=== PATIENT | male | born 1955 | race Caucasian/White ===

== ENCOUNTER 2016-06-01 12:29 | Emergency (ER) | payer OTHER ==
[~2016-06-01] VITALS: Ht 182.9 cm; Wt 113.4 kg
[~2016-06-01 12:29] MED LIST: IBUPROFEN600 MG PO; NORCO 5-325 TA1 EACH ORAL; TENORMIN25 MG ORAL
[2016-06-01] MEDS ORDERED: Ketorolac 60mg Inj IM ONE (13:00)
[2016-06-01] MEDS ORDERED: Norco 5mg/325mg tab ORAL ONE (13:00)
[2016-06-01] MEDS ORDERED: GENTAMICIN SUL3.5 GM OP (13:16)
[2016-06-01 13:40] VITALS: BP 138/80
--- NOTE | 2016-06-04 14:31 | Emergency Room Report ---
History of Present Illness General Chief Complaint: Alcohol Intoxication Source: Patient, Medical Record Present Illness HPI Patient presents with complaints of discharge from the left eye He also has pain to the nasal bridge And his recent surgical site Patient states that he has skin cancer Also tumor Patient reports that he had a recent procedure at [facility] He also reports drinking alcohol earlier today Patient has obvious surgical findings on the right side Which involves the right orbital wall Denies any fall or trauma Patient requested Dilaudid for his pain and states that this is what he usually gets Allergies: Coded Allergies: No Known Allergies (Unverified , 05/09/13) Patient History Past Medical History: see triage record Pertinent Family History: none Reviewed Nursing Documentation: PMH: Agreed, PSxH: Agreed Nursing Documentation-PMH Past Medical History: No History, Except For Hx Hypertension: Yes Hx Diabetes: Yes Hx Cancer: Yes - Brain CA Review of Systems All Other Systems: negative except mentioned in HPI Physical Exam Vital Signs Date Time Temp Pulse Resp B/P Pulse Ox O2 Delivery O2 Flow Rate FiO2 06/01/16 12:28 98.2 86 16 142/78 98 Room Air Sp02 EP Interpretation: reviewed, normal General Appearance: well appearing, no apparent distress Head: atraumatic, other - Evidence of surgery on the right side Eyes: right eye other - Patient has large debridement on the right side which involves the orbital region and into the nasal bridge, , left eye lid inflammation - Mild discharge in the left eye, pupil is reacting appropriately ENT: normal pharynx, no angioedema Respiratory: lungs clear, normal breath sounds Cardiovascular #1: regular rate, rhythm, no edema Gastrointestinal: soft, no mass Musculoskeletal: normal inspection, back normal Neurologic: alert, responsive Skin: other - As above Medical Decision Making Diagnostic Impression: Primary Impression: conjunctivitis ER Course Patient was provided ointment for the left eye Appears to have any significant recent surgery on the right side However the area appears appropriately healing Secondarily scabbing no fluctuance no other cellulitis is noted Patient requires close followup With primary site of the surgery And is otherwise stable for close followup Last Vital Signs Date Time Temp Pulse Resp B/P Pulse Ox O2 Delivery O2 Flow Rate FiO2 06/01/16 13:40 98.2 06/01/16 13:40 76 16 138/80 100 Room Air Status: improved Disposition: HOME, SELF-CARE Condition: Improved Scripts Gentamicin Sulfate* (GENTAMICIN SULFATE*) 3.5 Gm Oint...g. 3.5 GM OP TID for 7 Days, GM Prov: LAURA CRONIN D.O. 06/01/16 Referrals: NOT CHOSEN IPA/MD,REFERRING Patient Instructions: Bacterial Conjunctivitis, [id number] Additional Instructions: Patient is provided with the discharge instructions notified to follow up with primary doctor in the next 2-3 days otherwise return to the er with any worsening symptoms. LAURA CRONIN D.O. Jun 04, 2016 14:31
== END 2016-06-01 13:40 | disposition home or self-care (01) ==
LOC: EDBD 12:29 → EMR 12:40
DX: H10.9 Unspecified conjunctivitis (principal); I10 Essential (primary) hypertension; E11.9 Type 2 diabetes mellitus without complications; Z85.841 Personal history of malignant neoplasm of brain
CPT/HCPCS: 96372; 99283

== ENCOUNTER 2016-12-10 19:31 | Inpatient (IN) | payer OTHER ==
[~2016-12-10] VITALS: Ht 177.8 cm; Wt 105.2 kg
[~2016-12-10 19:31] MED LIST changes: +GENTAMICIN SUL3.5 GM OP
[2016-12-10 20:10] VITALS: BP 106/79
[2016-12-10 20:35] LABS: INR 1.3 (0.9-1.1); PROTHROMBIN TIME 14.1 SEC (9.30-11.50)
[2016-12-10 20:41] LABS: BASOPHILS % (AUTO) 1.2 % (0.0-2.0); EOSINOPHILS % (AUTO) 0.4 % (0.0-3.0); LYMPHOCYTES % (AUTO) 25.2 % (20.0-45.0); MEAN CORPUSCULAR HEMOGLOBIN 27.6 PG (27.0-31.0); MEAN CORPUSCULAR HGB CONC 32.6 G/DL (32.0-36.0); MEAN CORPUSCULAR VOLUME 85 FL (80-99); MEAN PLATELET VOLUME 6.8 FL (6.5-10.1); MONOCYTES % (AUTO) 10.8 % (1.0-10.0); NEUTROPHILS % (AUTO) 62.4 % (45.0-75.0); PLATELET COUNT 588 K/UL (150-450); RED BLOOD COUNT 3.19 M/UL (4.70-6.10); RED CELL DISTRIBUTION WIDTH 18.6 % (11.6-14.8); WHITE BLOOD COUNT 10.1 K/UL (4.8-10.8)
[2016-12-10 20:42] LABS: TROPONIN I < 0.30 ng/mL (<=0.30)
[2016-12-10 20:48] LABS: ALBUMIN/GLOBULIN RATIO 0.8 (1.0-2.7); CALCIUM 9.7 mg/dL (8.6-10.2); CREATININE 1.8 mg/dL (0.7-1.2); GLOMERULAR FILTRATION RATE 38.8 mL/min (>60); POTASSIUM 4.4 mEQ/L (3.4-4.9); TOTAL PROTEIN 7.9 g/dL (6.6-8.7)
[2016-12-10 20:58] LABS: CKMB 6.7 ng/mL (< 6.7)
[2016-12-10 21:00] VITALS: BP 110/85
[2016-12-10 21:09] LABS: BILIRUBIN,DIRECT 0.5 mg/dL (0.1-0.3)
[2016-12-10 21:14] LABS: APPEARANCE,URINE CLEAR; KETONES,URINE NEGATIVE (NEGATIVE); LEUKOCYTE ESTERASE ,URINE 2+ (NEGATIVE); NITRITE,URINE NEGATIVE (NEGATIVE); PH,URINE 5 (4.5-8.0); PROTEIN,URINE 2+ (NEGATIVE); UROBILINOGEN,URINE 4 MG/DL (0.0-1.0)
[2016-12-10 21:44] LABS: BACTERIA,URINE FEW /HPF; SQUAMOUS EPITHELIAL CELL,UR OCCASIONAL /LPF (NONE/OCC)
[2016-12-10 21:46] LABS: ICTOTEST NEGATIVE
--- NOTE | 2016-12-10 22:03 | Emergency Room Report ---
History of Present Illness General Chief Complaint: Chest Pain Source: Patient Present Illness HPI This patient lives in his van. Patient has a history of coronary artery disease and myocardial infarction. He also has a history of congestive heart failure. He states that he has brain cancer. He states he has been treated at [facility]. He has refused surgical resection of his brain tumor. He states that he was recently diagnosed with a DVT. He cannot be on any anticoagulation because when he went on Coumadin his eye started bleeding. He was recently placed on Lasix. He states he has been taking the Lasix as prescribed. He states he had a history of alcohol abuse but has not had a drink in 2 months. He complains of chest pain and shortness of breath. He states he can't even walk because he becomes very short of breath. He states he is also very weak. He has no other complaints. Allergies: Coded Allergies: No Known Allergies (Unverified , 05/09/13) Patient History Past Medical History: see triage record, DM, HTN, [place], CAD, CHF, other - Brain ca Social History: Denies: alcohol use, drug use, smoking Reviewed Nursing Documentation: PMH: Agreed, PSxH: Agreed Nursing Documentation-PMH Hx Hypertension: Yes Hx Diabetes: Yes Hx Cancer: Yes - Brain CA Review of Systems All Other Systems: negative except mentioned in HPI Physical Exam Vital Signs Date Time Temp Pulse Resp B/P Pulse Ox O2 Delivery O2 Flow Rate FiO2 12/10/16 19:31 98.4 99 16 106/79 100 Room Air Sp02 EP Interpretation: reviewed, normal General Appearance: no apparent distress, alert, GCS 15, non-toxic Head: normocephalic, atraumatic, other - R. orbit with dried blood. Eyeball removed. ENT: hearing grossly normal, normal pharynx, no angioedema, normal voice Neck: full range of motion, supple/symm/no masses Respiratory: chest non-tender, lungs clear, normal breath sounds, no respiratory distress, no retraction, no accessory muscle use, speaking full sentences Cardiovascular #1: regular rate, rhythm, no edema Gastrointestinal: normal bowel sounds, non tender, soft, non-distended, no guarding, no rebound Rectal: deferred Musculoskeletal: back normal, gait/station normal, normal range of motion, other - TTP L. calf Neurologic: alert, oriented x3, responsive, motor strength/tone normal, sensory intact, speech normal Psychiatric: judgement/insight normal, memory normal, mood/affect normal, no suicidal/homicidal ideation Skin: normal color, no rash, warm/dry, well hydrated Medical Decision Making Diagnostic Impression: Primary Impression: Chest pain Additional Impressions: Anemia Renal failure Transaminitis ER Course This patient presents with chest pain. The patient is a very complicated medical history. He is history of myocardial infarction and congestive heart failure. He is on Lasix. Chest x-ray shows a right lower lobe opacity but does not appear to be in acute heart failure. Troponin is negative. However, the patient has renal failure and transaminitis. Further concerning, is that this patient has a history of brain cancer. The patient reports a history of DVT but states that he cannot be on any blood thinners. Also concerning is that this patient is living in a van. This patient should be in a rehabilitation facility and not be in a van on the street. I did order bilateral lower extremity ultrasounds. However, these will be done as an inpatient in the hospital. This would not change treatment given this patient cannot be on any blood thinners and adamantly refuses to have any blood thinners. His visual be admitted for further monitoring and placement and social research assistant evaluation. Labs Test 12/10/16 20:00 12/10/16 20:35 White Blood Count 10.1 K/UL (4.8-10.8) Red Blood Count 3.19 M/UL (4.70-6.10) Hemoglobin 8.8 G/DL (14.2-18.0) Hematocrit 27.1 % (42.0-52.0) Mean Corpuscular Volume 85 FL (80-99) Mean Corpuscular Hemoglobin 27.6 PG (27.0-31.0) Mean Corpuscular Hemoglobin Concent 32.6 G/DL (32.0-36.0) Red Cell Distribution Width 18.6 % (11.6-14.8) Platelet Count 588 K/UL (150-450) Mean Platelet Volume 6.8 FL (6.5-10.1) Neutrophils (%) (Auto) 62.4 % (45.0-75.0) Lymphocytes (%) (Auto) 25.2 % (20.0-45.0) Monocytes (%) (Auto) 10.8 % (1.0-10.0) Eosinophils (%) (Auto) 0.4 % (0.0-3.0) Basophils (%) (Auto) 1.2 % (0.0-2.0) Prothrombin Time 14.1 SEC (9.30-11.50) Prothromb Time International Ratio 1.3 (0.9-1.1) Activated Partial Thromboplast Time 26 SEC (23-33) Sodium Level 131 mEQ/L (135-145) Potassium Level 4.4 mEQ/L (3.4-4.9) Chloride Level 90 mEQ/L (98-107) Carbon Dioxide Level 19 mEQ/L (20-30) Anion Gap 22 (5-15) Blood Urea Nitrogen 33 mg/dL (7-23) Creatinine 1.8 mg/dL (0.7-1.2) Estimat Glomerular Filtration Rate 38.8 mL/min (>60) Glucose Level 119 mg/dL (74-106) Calcium Level 9.7 mg/dL (8.6-10.2) Total Bilirubin 1.4 mg/dL (0.0-1.2) Direct Bilirubin 0.5 mg/dL (0.1-0.3) Aspartate Amino Transf (AST/SGOT) 90 U/L (5-40) Alanine Aminotransferase (ALT/SGPT) 79 U/L (3-41) Alkaline Phosphatase 218 U/L (40-129) Total Creatine Kinase 280 U/L (38-174) Creatine Kinase MB 6.7 ng/mL (< 6.7) Creatine Kinase MB Relative Index 2.3 Troponin I < 0.30 ng/mL (<=0.30) Total Protein 7.9 g/dL (6.6-8.7) Albumin 3.6 g/dL (3.5-5.2) Globulin 4.3 g/dL Albumin/Globulin Ratio 0.8 (1.0-2.7) Urine Color Yellow Urine Appearance Clear Urine pH 5 (4.5-8.0) Urine Specific [place] 1.025 (1.005-1.035) Urine Protein 2+ (NEGATIVE) Urine Glucose (UA) Negative (NEGATIVE) Urine Ketones Negative (NEGATIVE) Urine Occult Blood 1+ (NEGATIVE) Urine Nitrite Negative (NEGATIVE) Urine Bilirubin 1+ (NEGATIVE) Urine Ictotest Negative Urine Urobilinogen 4 MG/DL (0.0-1.0) Urine Leukocyte Esterase 2+ (NEGATIVE) Urine RBC 2-4 /HPF (0 - 0) Urine WBC 5-10 /HPF (0 - 0) Urine Squamous Epithelial Cells Occasional /LPF Urine Bacteria Few /HPF (NONE) Urine Opiates Screen Positive (NEGATIVE) Urine Barbiturates Screen Negative (NEGATIVE) Phencyclidine (PCP) Screen Negative (NEGATIVE) Urine Amphetamines Screen Negative (NEGATIVE) Urine Benzodiazepines Screen Negative (NEGATIVE) Urine Cocaine Screen Negative (NEGATIVE) Urine Marijuana (THC) Screen Positive (NEGATIVE) EKG Diagnostic Results Rate: tachycardiac Rhythm: other ST Segments: no acute changes Other Impression Q wave in V1, V2, V3. Rhythm Strip Diag. Results EP Interpretation: yes Rate: 100 Rhythm: NSR, no PVC's, no ectopy Chest X-Ray Diagnostic Results Chest X-Ray Diagnostic Results : Chest X-Ray Ordered: Yes # of Views/Limited/Complete: 1 View Indication: Chest Pain EP Interpretation: Yes Interpretation: no pneumothorax, other Impression: Other - Cardiomegaly, ? RLL opacity, pleural effusion Last Vital Signs Date Time Temp Pulse Resp B/P Pulse Ox O2 Delivery O2 Flow Rate FiO2 12/10/16 21:23 98.4 12/10/16 21:00 89 20 110/85 100 Room Air Disposition: ADMITTED INPATIENT Condition: Serious Referrals: [facility],REFERRING (PCP) MACHO FRENCH D.O. Dec 10, 2016 22:03
[2016-12-10] MEDS ORDERED: DuoNeb 0.5-3(2.5)mg/3ml neb HHN PRN (22:15)
[2016-12-10] MEDS ORDERED: Ketorolac 30mg Inj IV PRN (22:15)
[2016-12-10] MEDS ORDERED: Enalaprilat 2.5mg/2ml Inj IV PRN (22:15)
[2016-12-10] MEDS ORDERED: Diltiazem 25mg/5ml IV PRN (22:15)
[2016-12-10] MEDS ORDERED: Miralax 17gm pkt ORAL PRN (22:15)
[2016-12-10] MEDS ORDERED: Nitroglycerin Subl 0.4mg tab (Bottle Of 25) SL PRN (22:15)
[2016-12-10] MEDS ORDERED: Norco 5mg/325mg tab ORAL PRN (22:15)
[2016-12-11] VITALS (7 sets, daily range): BP systolic 98–126; BP diastolic 66–78
[2016-12-11] MEDS: Morphine Sulfate 2mg/ml Inj IVP PRN ×3 (03:06→21:54)
[2016-12-11] MEDS ORDERED: LIBRIUM25 MG ORAL (03:50)
[2016-12-11] MEDS ORDERED: FUROSEMIDE40 MG ORAL (03:50)
[2016-12-11 06:36] LABS: BASOPHILS % (AUTO) 0.6 % (0.0-2.0); EOSINOPHILS % (AUTO) 0.4 % (0.0-3.0); LYMPHOCYTES % (AUTO) 19.3 % (20.0-45.0); MEAN CORPUSCULAR HEMOGLOBIN 26.4 PG (27.0-31.0); MEAN CORPUSCULAR HGB CONC 31.4 G/DL (32.0-36.0); MEAN CORPUSCULAR VOLUME 84 FL (80-99); MONOCYTES % (AUTO) 8.2 % (1.0-10.0); NEUTROPHILS % (AUTO) 71.5 % (45.0-75.0); PLATELET COUNT 597 K/UL (150-450); RED BLOOD COUNT 3.19 M/UL (4.70-6.10); RED CELL DISTRIBUTION WIDTH 18.6 % (11.6-14.8)
[2016-12-11 06:42] LABS: INR 1.3 (0.9-1.1); PROTHROMBIN TIME 13.7 SEC (9.30-11.50)
[2016-12-11 07:56] LABS: CHOLESTEROL/HDL RATIO 5.6 (3.3-4.4); CRP QUANT 4.1 mg/dL (< 0.5)
[2016-12-11] MEDS: Heparin 5000 units/ml inj SUBQ SCH ×3 (08:20→22:05)
[2016-12-11 08:40] LABS: TROPONIN I < 0.30 ng/mL (<=0.30)
[2016-12-11 08:53] LABS: THYROID STIMULATING HORMONE 2.45 uIU/mL (0.300-4.500)
[2016-12-11] MEDS ORDERED: Atenolol 25mg tab ORAL SCH (09:00)
[2016-12-11] MEDS ORDERED: Aspirin Baby 81mg ORAL SCH (09:00)
--- NOTE | 2016-12-11 10:24 | Diagnostic Imaging Report ---
Indication: Chest pain Technique: One view of the chest Comparison: none Findings: There is pleural fluid and atelectasis of the right lung base. Heart is enlarged. The right upper lung, left lung and pleural space are clear. Impression: Right basilar pleural fluid and atelectasis
--- NOTE | 2016-12-11 11:32 | History and Physical ---
History of Present Illness General Date patient seen: Dec 11, 2016 Reason for Hospitalization: Chest Pain Present Illness HPI 61 year old male with hx of DM, HTN, OR, CAD, CHF,- Brain ca . on Lasix. history of alcohol abuse, homeless, presented to ER with CC of chest pain and shortness of breath. He states he can't even walk because he becomes very short of breath. He states he is also very weak. His CXR showed cardiomegaly and pleural effusion. Allergies: Coded Allergies: No Known Allergies (Unverified , 05/09/13) Medication History Scheduled Chlordiazepoxide (Chlordiazepoxide HCl), 25 MG ORAL BID, (Reported) Furosemide* (Lasix*), 40 MG ORAL DAILY, (Reported) Scheduled PRN Hydrocodone Bit/Acetaminophen 5-325* ([place] 5-325*), 1 TAB ORAL Q6H PRN for For Pain Discontinued Medications Atenolol (Tenormin), 25 MG ORAL DAILY, (Reported) Discontinued Reason: Pt stopped taking med Gentamicin Sulfate* (Gentamicin Sulfate*), 3.5 GM OP TID Discontinued Reason: Pt stopped taking med Ibuprofen* (Motrin*), 600 MG PO TID Discontinued Reason: Pt stopped taking med Patient History Healthcare decision maker Resuscitation status Full Code Advanced Directive on File Past Medical/Surgical History Past Medical/Surgical History: (1) Brain tumor (2) CAD (coronary artery disease) (3) Diabetes mellitus Review of Systems All Other Systems: negative except mentioned in HPI Physical Exam General Appearance: WD/WN Lines, tubes and drains: peripheral HEENT: normocephalic, atraumatic Neck: non-tender, normal alignment Respiratory/Chest: chest wall non-tender, rhonchi - bilaterally Cardiovascular/Chest: normal peripheral pulses, normal rate, no JVD Abdomen: normal bowel sounds, non tender Genitourinary/Rectal: normal genital exam Extremities: normal range of motion Skin Exam: normal pigmentation 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 Last 24 Hour Vital Signs Date Time Temp Pulse Resp B/P Pulse Ox O2 Delivery O2 Flow Rate FiO2 12/11/16 08:00 97.0 87 20 101/74 Nasal Cannula 2.0 12/11/16 04:00 97.0 78 24 100/68 92 Room Air 12/11/16 04:00 86 12/11/16 02:15 97.0 80 24 105/68 96 Nasal Cannula 2.0 12/11/16 02:10 93 16 99/66 100 Room Air 12/11/16 00:00 97.9 93 16 99/66 100 Room Air 12/10/16 21:23 98.4 12/10/16 21:00 89 20 110/85 100 Room Air 12/10/16 20:10 98.4 99 16 106/79 100 Room Air 12/10/16 20:10 99 16 Room Air 12/10/16 19:31 98.4 99 16 106/79 100 Room Air Intake and Output 12/10/16 12/11/16 19:00 07:00 Intake Total 535 ml Output Total 5 ml Balance 530 ml Intake Oral 240 ml IV Total 295 ml Output Urine Total 5 ml # Voids 4 # Bowel Movements 1 Laboratory Tests Test 12/10/16 20:00 12/10/16 20:35 12/10/16 22:00 12/11/16 03:20 White Blood Count 10.1 K/UL (4.8-10.8) Red Blood Count 3.19 M/UL (4.70-6.10) L Hemoglobin 8.8 G/DL (14.2-18.0) L Hematocrit 27.1 % (42.0-52.0) L Mean Corpuscular Volume 85 FL (80-99) Mean Corpuscular Hemoglobin 27.6 PG (27.0-31.0) Mean Corpuscular Hemoglobin Concent 32.6 G/DL (32.0-36.0) Red Cell Distribution Width 18.6 % (11.6-14.8) H Platelet Count 588 K/UL (150-450) H Mean Platelet Volume 6.8 FL (6.5-10.1) Neutrophils (%) (Auto) 62.4 % (45.0-75.0) Lymphocytes (%) (Auto) 25.2 % (20.0-45.0) Monocytes (%) (Auto) 10.8 % (1.0-10.0) H Eosinophils (%) (Auto) 0.4 % (0.0-3.0) Basophils (%) (Auto) 1.2 % (0.0-2.0) Prothrombin Time 14.1 SEC (9.30-11.50) H Prothromb Time International Ratio 1.3 (0.9-1.1) H Activated Partial Thromboplast Time 26 SEC (23-33) Sodium Level 131 mEQ/L (135-145) L Potassium Level 4.4 mEQ/L (3.4-4.9) Chloride Level 90 mEQ/L (98-107) L Carbon Dioxide Level 19 mEQ/L (20-30) L Anion Gap 22 (5-15) H Blood Urea Nitrogen 33 mg/dL (7-23) H Creatinine 1.8 mg/dL (0.7-1.2) H Estimat Glomerular Filtration Rate 38.8 mL/min (>60) Glucose Level 119 mg/dL (74-106) H Calcium Level 9.7 mg/dL (8.6-10.2) Total Bilirubin 1.4 mg/dL (0.0-1.2) H Direct Bilirubin 0.5 mg/dL (0.1-0.3) H Aspartate Amino Transf (AST/SGOT) 90 U/L (5-40) H Alanine Aminotransferase (ALT/SGPT) 79 U/L (3-41) H Alkaline Phosphatase 218 U/L (40-129) H Total Creatine Kinase 280 U/L (38-174) H Creatine Kinase MB 6.7 ng/mL (< 6.7) Creatine Kinase MB Relative Index 2.3 Troponin I < 0.30 ng/mL (<=0.30) Pro-B-Type Natriuretic Peptide 92995 pg/mL (0-125) H Total Protein 7.9 g/dL (6.6-8.7) Albumin 3.6 g/dL (3.5-5.2) Globulin 4.3 g/dL Albumin/Globulin Ratio 0.8 (1.0-2.7) L Urine Color Yellow Urine Appearance Clear Urine pH 5 (4.5-8.0) Urine Specific [place] 1.025 (1.005-1.035) Urine Protein 2+ (NEGATIVE) H Urine Glucose (UA) Negative (NEGATIVE) Urine Ketones Negative (NEGATIVE) Urine Occult Blood 1+ (NEGATIVE) H Urine Nitrite Negative (NEGATIVE) Urine Bilirubin 1+ (NEGATIVE) H Urine Ictotest Negative Urine Urobilinogen 4 MG/DL (0.0-1.0) H Urine Leukocyte Esterase 2+ (NEGATIVE) H Urine RBC 2-4 /HPF (0 - 0) H Urine WBC 5-10 /HPF (0 - 0) H Urine Squamous Epithelial Cells Occasional /LPF Urine Bacteria Few /HPF (NONE) Urine Opiates Screen Positive (NEGATIVE) H Urine Barbiturates Screen Negative (NEGATIVE) Phencyclidine (PCP) Screen Negative (NEGATIVE) Urine Amphetamines Screen Negative (NEGATIVE) Urine Benzodiazepines Screen Negative (NEGATIVE) Urine Cocaine Screen Negative (NEGATIVE) Urine Marijuana (THC) Screen Positive (NEGATIVE) H Uric Acid 11.4 mg/dL (3.0-7.5) H Urine Eosinophils None seen Urine Random Sodium < 10 mmol/L Urine Potassium Timed 89 mmol/L Stool Occult Blood Pending Test 12/11/16 04:30 White Blood Count 10.0 K/UL (4.8-10.8) Red Blood Count 3.19 M/UL (4.70-6.10) L Hemoglobin 8.4 G/DL (14.2-18.0) L Hematocrit 26.9 % (42.0-52.0) L Mean Corpuscular Volume 84 FL (80-99) Mean Corpuscular Hemoglobin 26.4 PG (27.0-31.0) L Mean Corpuscular Hemoglobin Concent 31.4 G/DL (32.0-36.0) L Red Cell Distribution Width 18.6 % (11.6-14.8) H Platelet Count 597 K/UL (150-450) H Mean Platelet Volume 7.0 FL (6.5-10.1) Neutrophils (%) (Auto) 71.5 % (45.0-75.0) Lymphocytes (%) (Auto) 19.3 % (20.0-45.0) L Monocytes (%) (Auto) 8.2 % (1.0-10.0) Eosinophils (%) (Auto) 0.4 % (0.0-3.0) Basophils (%) (Auto) 0.6 % (0.0-2.0) Erythrocyte Sedimentation Rate 87 MM/HR (0-20) H Reticulocyte Count Pending Prothrombin Time 13.7 SEC (9.30-11.50) H Prothromb Time International Ratio 1.3 (0.9-1.1) H Activated Partial Thromboplast Time 27 SEC (23-33) Iron Level 20 ug/dL (59-158) L Total Iron Binding Capacity 437 ug/dL (250-400) H Percent Iron Saturation 5 % (15-50) L Unsaturated Iron Binding 417 ug/dL (112-346) H Lactate Dehydrogenase 413 U/L (135-230) H Troponin I < 0.30 ng/mL (<=0.30) C-Reactive Protein, Quantitative 4.1 mg/dL (< 0.5) H Triglycerides Level 61 mg/dL (< 150) Cholesterol Level 79 mg/dL (< 200) LDL Cholesterol 53 mg/dL (60-99) L HDL Cholesterol 14 mg/dL (> 60) Cholesterol/HDL Ratio 5.6 (3.3-4.4) H Carcinoembryonic Antigen 3.4 ng/mL H Vitamin B12 Level 849 pg/mL (211-946) Folate Pending Thyroid Stimulating Hormone (TSH) 2.450 uIU/mL (0.300-4.500) Height (Feet): 5 Height (Inches): 10.00 Weight (Pounds): 232 Medications Current Medications Medications (Trade) Dose Ordered Sig/[place] Route PRN Reason Start Time Stop Time Status Last Admin Dose Admin Acetaminophen (Tylenol) 650 mg Q4H PRN ORAL FEVER 12/10/16 22:15 01/09/17 22:14 Acetaminophen/ Hydrocodone Bitart ([place] 5/325) 1 tab Q6H PRN ORAL For Pain 12/10/16 22:15 12/17/16 22:14 Albuterol/ Ipratropium (DuoNeb 0.5-3(2.5)mg/3ml) 3 ml EVERY 4 HOURS PRN HHN Shortness of Breath 12/10/16 22:15 12/15/16 22:14 Aspirin (ASA) 162 mg DAILY ORAL 12/11/16 09:00 01/10/17 08:59 12/11/16 08:20 Diltiazem HCl (Cardizem) 10 mg EVERY HOUR PRN IV heart rate more than 120, 12/10/16 22:15 01/09/17 22:14 Enalaprilat (Vasotec) 2.5 mg EVERY 6 HOURS PRN IV sbp more than 160 12/10/16 22:15 01/09/17 22:14 Heparin Sodium (Porcine) 5000 units 5,000 units EVERY 12 HOURS SUBQ 12/11/16 09:00 01/10/17 08:59 Ketorolac Tromethamine (Toradol 30mg) 30 mg Q6HR PRN IV moderate pain ( 4-6) 12/10/16 22:15 12/15/16 22:14 UNV Morphine Sulfate (Morphine Sulfate) 2 mg EVERY 4 HOURS PRN IVP severe Pain (Pain Scale 7-10) 12/10/16 22:15 12/17/16 22:14 12/11/16 08:25 Nitroglycerin (Ntg) 0.4 mg Every 5 Minutes PRN SL Prn Chest Pain 12/10/16 22:15 01/09/17 22:14 Ondansetron HCl (Zofran) 4 mg Q6H PRN IVP Nausea & Vomiting 12/10/16 22:15 01/09/17 22:14 Pantoprazole (Protonix) 40 mg DAILY ORAL 12/11/16 09:00 01/10/17 08:59 12/11/16 08:20 Polyethylene Glycol (Miralax) 17 gm DAILYPRN PRN ORAL Constipation 12/10/16 22:15 01/09/17 22:14 Sodium Chloride (Sodium Chloride 1000ml bag) 1,000 ml @ 75 mls/hr [id number] IV 12/11/16 03:00 01/10/17 02:59 12/11/16 03:07 Temazepam (Restoril) 15 mg HSPRN PRN ORAL Insomnia 12/10/16 22:15 12/17/16 22:14 Assessment/Plan Problem List: (1) Pulmonary edema ICD Codes: J81.1 - Chronic pulmonary edema SNOMED: 82971890 (2) Cardiomyopathy ICD Codes: I42.9 - Cardiomyopathy, unspecified SNOMED: 42766870 (3) Anemia ICD Codes: D64.9 - Anemia, unspecified SNOMED: 159633871 (4) Renal failure ICD Codes: N19 - Unspecified kidney failure SNOMED: 73421304 (5) Diabetes mellitus ICD Codes: E11.9 - Type 2 diabetes mellitus without complications SNOMED: 30667211 (6) CAD (coronary artery disease) ICD Codes: I25.10 - Atherosclerotic heart disease of [place] coronary artery without angina pectoris SNOMED: 80666878 (7) Brain tumor ICD Codes: D49.6 - Neoplasm of unspecified behavior of brain SNOMED: 18358637, 766217376 Assessment/Plan cardiac work up diuretics obtain records from [facility] social service consult RICARDO SHIPLEY Dec 11, 2016 11:32
--- NOTE | 2016-12-11 12:18 | Diagnostic Imaging Report ---
APPROVED REPORT CPT Code: 28664 Present Symptoms Shortness of breath RIGHT LEG: Venous imaging reveals a patent deep venous system. There is no evidence of thrombus within the femoral, popliteal or tibial segments. The greater saphenous vein is also within normal limits. Doppler indicates normal spontaneous flow within these segments. LEFT LEG: Venous imaging reveals acute thrombus in the calf vein (peroneal tibial). Imaging also reveals patency of the common femoral, popliteal and calf veins (posterior tibial and anterior tibial ). The greater saphenous vein is within normal limits. DAMASO Vaughan was notified of abnormal results at 1120 hours.
[2016-12-11 12:22] LABS: RETICULOCYTE COUNT 2.3 % (0.0-2.0)
[2016-12-11 12:37] LABS: ANISOCYTOSIS 2+; BAND NEUTROPHILS % (MANUAL) 0 % (0-8); BASOPHILS % (MANUAL) 0 % (0-2); EOSINOPHILS % (MANUAL) 0 % (0-3); LYMPHOCYTES % (MANUAL) 16 % (20-45); NEUTROPHILS % (MANUAL) 71 % (45-75); NUCLEATED RED BLOOD CELLS 4 /100 WBC; PLATELET ESTIMATE INCREASED; PLATELET MORPHOLOGY NORMAL; TOTAL CELLS COUNTED 100
[2016-12-11 12:38] LABS: HYPOCHROMASIA 2+
--- NOTE | 2016-12-11 13:24 | Neurology Progress Note ---
Objective Physical Exam Last Vital Signs Date Time Temp Pulse Resp B/P Pulse Ox O2 Delivery O2 Flow Rate FiO2 12/11/16 12:00 97.6 70 18 109/78 Nasal Cannula 2.0 12/11/16 04:00 92 Laboratory Tests Test 12/10/16 20:00 12/10/16 20:35 12/10/16 22:00 12/11/16 03:20 White Blood Count 10.1 K/UL (4.8-10.8) Red Blood Count 3.19 M/UL (4.70-6.10) L Hemoglobin 8.8 G/DL (14.2-18.0) L Hematocrit 27.1 % (42.0-52.0) L Mean Corpuscular Volume 85 FL (80-99) Mean Corpuscular Hemoglobin 27.6 PG (27.0-31.0) Mean Corpuscular Hemoglobin Concent 32.6 G/DL (32.0-36.0) Red Cell Distribution Width 18.6 % (11.6-14.8) H Platelet Count 588 K/UL (150-450) H Mean Platelet Volume 6.8 FL (6.5-10.1) Neutrophils (%) (Auto) 62.4 % (45.0-75.0) Lymphocytes (%) (Auto) 25.2 % (20.0-45.0) Monocytes (%) (Auto) 10.8 % (1.0-10.0) H Eosinophils (%) (Auto) 0.4 % (0.0-3.0) Basophils (%) (Auto) 1.2 % (0.0-2.0) Prothrombin Time 14.1 SEC (9.30-11.50) H Prothromb Time International Ratio 1.3 (0.9-1.1) H Activated Partial Thromboplast Time 26 SEC (23-33) Sodium Level 131 mEQ/L (135-145) L Potassium Level 4.4 mEQ/L (3.4-4.9) Chloride Level 90 mEQ/L (98-107) L Carbon Dioxide Level 19 mEQ/L (20-30) L Anion Gap 22 (5-15) H Blood Urea Nitrogen 33 mg/dL (7-23) H Creatinine 1.8 mg/dL (0.7-1.2) H Estimat Glomerular Filtration Rate 38.8 mL/min (>60) Glucose Level 119 mg/dL (74-106) H Calcium Level 9.7 mg/dL (8.6-10.2) Total Bilirubin 1.4 mg/dL (0.0-1.2) H Direct Bilirubin 0.5 mg/dL (0.1-0.3) H Aspartate Amino Transf (AST/SGOT) 90 U/L (5-40) H Alanine Aminotransferase (ALT/SGPT) 79 U/L (3-41) H Alkaline Phosphatase 218 U/L (40-129) H Total Creatine Kinase 280 U/L (38-174) H Creatine Kinase MB 6.7 ng/mL (< 6.7) Creatine Kinase MB Relative Index 2.3 Troponin I < 0.30 ng/mL (<=0.30) Pro-B-Type Natriuretic Peptide 89938 pg/mL (0-125) H Total Protein 7.9 g/dL (6.6-8.7) Albumin 3.6 g/dL (3.5-5.2) Globulin 4.3 g/dL Albumin/Globulin Ratio 0.8 (1.0-2.7) L Urine Color Yellow Urine Appearance Clear Urine pH 5 (4.5-8.0) Urine Specific [place] 1.025 (1.005-1.035) Urine Protein 2+ (NEGATIVE) H Urine Glucose (UA) Negative (NEGATIVE) Urine Ketones Negative (NEGATIVE) Urine Occult Blood 1+ (NEGATIVE) H Urine Nitrite Negative (NEGATIVE) Urine Bilirubin 1+ (NEGATIVE) H Urine Ictotest Negative Urine Urobilinogen 4 MG/DL (0.0-1.0) H Urine Leukocyte Esterase 2+ (NEGATIVE) H Urine RBC 2-4 /HPF (0 - 0) H Urine WBC 5-10 /HPF (0 - 0) H Urine Squamous Epithelial Cells Occasional /LPF Urine Bacteria Few /HPF (NONE) Urine Opiates Screen Positive (NEGATIVE) H Urine Barbiturates Screen Negative (NEGATIVE) Phencyclidine (PCP) Screen Negative (NEGATIVE) Urine Amphetamines Screen Negative (NEGATIVE) Urine Benzodiazepines Screen Negative (NEGATIVE) Urine Cocaine Screen Negative (NEGATIVE) Urine Marijuana (THC) Screen Positive (NEGATIVE) H Uric Acid 11.4 mg/dL (3.0-7.5) H Urine Eosinophils None seen Urine Random Sodium < 10 mmol/L Urine Potassium Timed 89 mmol/L Stool Occult Blood Positive (NEGATIVE) Test 12/11/16 04:30 White Blood Count 10.0 K/UL (4.8-10.8) Red Blood Count 3.19 M/UL (4.70-6.10) L Hemoglobin 8.4 G/DL (14.2-18.0) L Hematocrit 26.9 % (42.0-52.0) L Mean Corpuscular Volume 84 FL (80-99) Mean Corpuscular Hemoglobin 26.4 PG (27.0-31.0) L Mean Corpuscular Hemoglobin Concent 31.4 G/DL (32.0-36.0) L Red Cell Distribution Width 18.6 % (11.6-14.8) H Platelet Count 597 K/UL (150-450) H Mean Platelet Volume 7.0 FL (6.5-10.1) Neutrophils (%) (Auto) 71.5 % (45.0-75.0) Lymphocytes (%) (Auto) 19.3 % (20.0-45.0) L Monocytes (%) (Auto) 8.2 % (1.0-10.0) Eosinophils (%) (Auto) 0.4 % (0.0-3.0) Basophils (%) (Auto) 0.6 % (0.0-2.0) Differential Total Cells Counted 100 Neutrophils % (Manual) 71 % (45-75) Lymphocytes % (Manual) 16 % (20-45) L Monocytes % (Manual) 13 % (1-10) H Eosinophils % (Manual) 0 % (0-3) Basophils % (Manual) 0 % (0-2) Band Neutrophils 0 % (0-8) Nucleated Red Blood Cells 4 /100 WBC Platelet Estimate Increased H Platelet Morphology Normal Hypochromasia 2+ Anisocytosis 2+ Erythrocyte Sedimentation Rate 87 MM/HR (0-20) H Reticulocyte Count 2.3 % (0.0-2.0) H Prothrombin Time 13.7 SEC (9.30-11.50) H Prothromb Time International Ratio 1.3 (0.9-1.1) H Activated Partial Thromboplast Time 27 SEC (23-33) Iron Level 20 ug/dL (59-158) L Total Iron Binding Capacity 437 ug/dL (250-400) H Percent Iron Saturation 5 % (15-50) L Unsaturated Iron Binding 417 ug/dL (112-346) H Lactate Dehydrogenase 413 U/L (135-230) H Troponin I < 0.30 ng/mL (<=0.30) C-Reactive Protein, Quantitative 4.1 mg/dL (< 0.5) H Triglycerides Level 61 mg/dL (< 150) Cholesterol Level 79 mg/dL (< 200) LDL Cholesterol 53 mg/dL (60-99) L HDL Cholesterol 14 mg/dL (> 60) Cholesterol/HDL Ratio 5.6 (3.3-4.4) H Carcinoembryonic Antigen 3.4 ng/mL H Vitamin B12 Level 849 pg/mL (211-946) Folate Pending Thyroid Stimulating Hormone (TSH) 2.450 uIU/mL (0.300-4.500) Impression/Recommendations Problems: (1) basal cell carcinoma, right orbit, invasive (2) CAD (coronary artery disease) (3) Diabetes mellitus (4) Transaminitis (5) Renal failure (6) Cardiomyopathy Status: unchanged Recommendations #[id number] INGRID SMITH Dec 11, 2016 13:24
--- NOTE | 2016-12-11 14:45 | Diagnostic Imaging Report ---
Indication: Abnormal renal function tests Technique: Grayscale and duplex images of the kidneys, retroperitoneum, and bladder were obtained. Comparison:None Findings: Right kidney measures 10.8 cm in length. Left kidney measures 10.7 cm in length. Both kidneys demonstrate normal echogenicity. No hydronephrosis. No focal abnormality. Normal inferior vena cava. Bladder is equivocally somewhat thickwalled. Incidentally noted is trace ascites and a right-sided pleural effusion Impression: Negative for hydronephrosis or other renal abnormality Equivocally thickened bladder wall, cystitis a possibility. Correlate with clinical and laboratory findings Trace ascites Right pleural effusion.
--- NOTE | 2016-12-11 17:16 | Consultation ---
DATE OF CONSULTATION: 12/11/2016 NEUROLOGICAL CONSULTATION HISTORY OF PRESENT ILLNESS: This is a 61-year-old man seen in neurological consultation to evaluate the progressive difficulty ambulation in the setting of a brain tumor. The patient informed that he has cardiac abnormalities, shortness of breath on minor exertion, chest pain, and recently diagnosed left lower extremity DVT. He suffered previously from CHF. The patient also informs that last 10 years, he is suffering from basal cell carcinoma affected his left orbit and left-sided skull with gradual progression of tumor, which was not treated. 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 The patient was brought to this hospital with vital signs stable, blood pressure 106/79, heart rate of 99, and temperature 98.4 degrees. He was complaining of chest pain. Initial workup included a chest x-ray, which revealed a pleural fluid and atelectasis of right lung base, enlarged cardiomegaly. Duplex study of lower extremities with acute thrombus in the left leg. Laboratory work included CBC study was unremarkable, but sedimentation rate of 87 and reticulocyte count of 2.3. Stool occult blood was positive. Toxicology panel positive for opiates and marijuana. Coagulation panel with INR 1.3 and PT 13.1. Chemistry panel with anion gap of 22, BUN of 33, and creatinine 1.8. Elevated bilirubin 1.4. AST 90 and ALT 79. Elevated CPK is 280. Greatly elevated natriuretic peptide of 10,983. Normal TSH and vitamin B12 as well as troponin. Uric acid elevated at 11.4. PAST MEDICAL HISTORY: The patient has a history of congestive heart failure, chronic alcohol abuse, history of coronary artery disease, previous OH, chronic pain, diabetes type 2, transaminitis, and pulmonary edema. MEDICATIONS: Treatment prior to admission included aspirin, diltiazem, , Zofran, Protonix, MiraLax, and Restoril. SOCIAL HISTORY: Lives in a van. No close family. He states that his last drink was two months ago. He is smoking marijuana. REVIEW OF SYSTEMS: Severe shortness of breath on exertion, chest pain, generalized weakness, inability to walk more than a few steps causing shortness of breath. Using walker due to problem with walking. PHYSICAL EXAMINATION: GENERAL: A well-developed, well-nourished man, not in acute distress, sitting at the bedside, having his lunch. VITAL SIGNS: Blood pressure 133/80, respirations 14, and temperature 98.1 degrees. HEENT: Head, normocephalic. There is a very large gaping tissue deficit in the right orbital area with enucleated right eye. There is a slight bloody discharge, sterile gauze placed on the right orbit. NECK: Supple. No meningeal signs. MUSCULOSKELETAL: 1+ pitting edema in both ankles. Peripheral pulses 1+ symmetric. MENTAL STATUS: He is alert and oriented x3 with no evidence of aphasia or apraxia. Cognitive function normal. CRANIAL NERVE II: Left pupil is 2 mm, responding to light and accommodation. Extraocular movement full range CRANIAL NERVE V: Normal corneal responses. CRANIAL NERVE VII: Slight droop right nasolabial fold. CRANIAL NERVE VIII: Normal hearing. CRANIAL NERVE IX THROUGH XII: Within normal limits. MOTOR EXAMINATION: Normal muscle tone. Strength is 5/5 in all extremities. No involuntary movement. Deep tendon reflexes 1+ symmetric with downgoing toes on both sides. Sensory exam normal to pin stimulation. Gait is slow, limited by shortness of breath. IMPRESSION: 1. Basal cell carcinoma with invasive, now stable. 2. Abnormal gait, multifactorial predominantly due to congestive heart failure. 3. Hypertension. 4. Diabetes, type 2. 5. Coronary artery disease, status post myocardial infarction. 6. Substance abuse. RECOMMENDATION: Basal cell carcinoma very slowly progressing for over 10 years with most recent assessment at [facility] where an MRI of the brain was obtained revealing no interval changes according to the patient. He denies headache or dizziness. The patient main concern at this time is shortness of breath affecting his ambulation. He has no focal or lateralizing neurological deficit. Issue of DVT left lower extremity will being addressed. Anticoagulation is not indicated due to open bleeding ulceration in the tumor area. The patient to continue with the current treatment, maintain thiamine 100 mg daily supplements. Thank you for allowing me to see this interesting patient in neurological consultation. Wilfredo Sweeney M.D. DR: BOBBI JOB#: [id number] CC:
--- NOTE | 2016-12-11 18:05 | Cardiology Report ---
APPROVED REPORT EXAM: Two-dimensional and M-mode echocardiogram with Doppler and color Doppler. INDICATION LV function M-Mode DIMENSIONS IVSd0.8 (0.7-1.1cm)Left Atrium (MM)5.2 (1.6-4.0cm) LVDd5.1 (3.5-5.6cm)Aortic Root2.9 (2.0-3.7cm) PWd2.2 (0.7-1.1cm)Aortic Cusp Exc.1.9 (1.5-2.0cm) LVDs3.9 (2.5-4.0cm) PWs3.0 cm Other Information Technically limited study due to poor acoustical windows and pt's position. Normal left ventricular chamber size. Septum apex distal lateral wall , distal inferior and anterior [place] appear akinetic RV appears enlarged adn porbably hypokintic Left ventricular ejection fraction estimated to be 30 %. Increased E point-interventricular septal separation c/w left ventricular dysfunction. Study quality precludes accurate assessment of regional wall motion. No evidence of left ventricular hypertrophy. Anterior Echo-free space, may be due to pericardial fat or effusion. Moderate bi-atrial enlargement. Right ventricular chamber size is within normal limits. Focal aortic valve sclerosis with adequate cusp excursion. Thickened mitral valve leaflets with normal excursion. Mitral annulus and aortic root calcification. Pulmonic valve not well visualized. Normal tricuspid valve structure. IVC dilated at 2.8 cm without physiologic collapse suggestive of RA pressure 20 mmHg. A color flow and spectral Doppler study was performed and revealed: Trace to mild aortic regurgitation. Moderate mitral regurgitation. Mitral inflow indicates restrictive pattern, implying severely elevated left atrial pressure (Grade III). Mild to moderate tricuspid regurgitation. Tricuspid systolic velocities suggests peak right ventricular systolic pressure of 50 mmHg, consistent with moderate pulmonary hypertension.
--- NOTE | 2016-12-11 18:14 | Cardiology Report ---
APPROVED REPORT EKG Measurement Heart [id number] Sinus tachycardia Left axis deviation Right bundle branch block Anteroseptal infarct, age undetermined Abnormal ECG
--- NOTE | 2016-12-11 19:27 | Cardiology Progress Note ---
Assessment/Plan Assessment/Plan acute on chronic chf icm cad with stemi 11/2016 refused pci dvt bellow knee not acute obeisty cri righ eye bleedign on dapt [facility] righ eye s/p enuclaeation dc ivf diuretics watch bp adn cr nto a cnadidate co chronic anticoagualtion due to bleedign form right eye [id number] Objective Last 24 Hour Vital Signs Date Time Temp Pulse Resp B/P Pulse Ox O2 Delivery O2 Flow Rate FiO2 12/11/16 16:00 97.0 97 18 126/73 Room Air 12/11/16 16:00 89 12/11/16 14:28 92 20 Nasal Cannula 2.0 29 12/11/16 12:00 92 12/11/16 12:00 97.6 70 18 109/78 Nasal Cannula 2.0 12/11/16 08:00 90 12/11/16 08:00 97.0 87 20 101/74 Nasal Cannula 2.0 12/11/16 04:00 97.0 78 24 100/68 92 Room Air 12/11/16 04:00 86 12/11/16 02:15 97.0 80 24 105/68 96 Nasal Cannula 2.0 12/11/16 02:10 93 16 99/66 100 Room Air 12/11/16 00:00 97.9 93 16 99/66 100 Room Air 12/10/16 21:23 98.4 12/10/16 21:00 89 20 110/85 100 Room Air 12/10/16 20:10 98.4 99 16 106/79 100 Room Air 12/10/16 20:10 99 16 Room Air 12/10/16 19:31 98.4 99 16 106/79 100 Room Air Intake and Output 12/10/16 12/11/16 19:00 07:00 Intake Total 535 ml Output Total 5 ml Balance 530 ml Intake Oral 240 ml IV Total 295 ml Output Urine Total 5 ml # Voids 4 # Bowel Movements 1 Laboratory Tests Test 12/10/16 20:00 12/10/16 20:35 12/10/16 22:00 12/11/16 03:20 White Blood Count 10.1 K/UL (4.8-10.8) Red Blood Count 3.19 M/UL (4.70-6.10) L Hemoglobin 8.8 G/DL (14.2-18.0) L Hematocrit 27.1 % (42.0-52.0) L Mean Corpuscular Volume 85 FL (80-99) Mean Corpuscular Hemoglobin 27.6 PG (27.0-31.0) Mean Corpuscular Hemoglobin Concent 32.6 G/DL (32.0-36.0) Red Cell Distribution Width 18.6 % (11.6-14.8) H Platelet Count 588 K/UL (150-450) H Mean Platelet Volume 6.8 FL (6.5-10.1) Neutrophils (%) (Auto) 62.4 % (45.0-75.0) Lymphocytes (%) (Auto) 25.2 % (20.0-45.0) Monocytes (%) (Auto) 10.8 % (1.0-10.0) H Eosinophils (%) (Auto) 0.4 % (0.0-3.0) Basophils (%) (Auto) 1.2 % (0.0-2.0) Prothrombin Time 14.1 SEC (9.30-11.50) H Prothromb Time International Ratio 1.3 (0.9-1.1) H Activated Partial Thromboplast Time 26 SEC (23-33) Sodium Level 131 mEQ/L (135-145) L Potassium Level 4.4 mEQ/L (3.4-4.9) Chloride Level 90 mEQ/L (98-107) L Carbon Dioxide Level 19 mEQ/L (20-30) L Anion Gap 22 (5-15) H Blood Urea Nitrogen 33 mg/dL (7-23) H Creatinine 1.8 mg/dL (0.7-1.2) H Estimat Glomerular Filtration Rate 38.8 mL/min (>60) Glucose Level 119 mg/dL (74-106) H Calcium Level 9.7 mg/dL (8.6-10.2) Total Bilirubin 1.4 mg/dL (0.0-1.2) H Direct Bilirubin 0.5 mg/dL (0.1-0.3) H Aspartate Amino Transf (AST/SGOT) 90 U/L (5-40) H Alanine Aminotransferase (ALT/SGPT) 79 U/L (3-41) H Alkaline Phosphatase 218 U/L (40-129) H Total Creatine Kinase 280 U/L (38-174) H Creatine Kinase MB 6.7 ng/mL (< 6.7) Creatine Kinase MB Relative Index 2.3 Troponin I < 0.30 ng/mL (<=0.30) Pro-B-Type Natriuretic Peptide 71761 pg/mL (0-125) H Total Protein 7.9 g/dL (6.6-8.7) Albumin 3.6 g/dL (3.5-5.2) Globulin 4.3 g/dL Albumin/Globulin Ratio 0.8 (1.0-2.7) L Urine Color Yellow Urine Appearance Clear Urine pH 5 (4.5-8.0) Urine Specific [place] 1.025 (1.005-1.035) Urine Protein 2+ (NEGATIVE) H Urine Glucose (UA) Negative (NEGATIVE) Urine Ketones Negative (NEGATIVE) Urine Occult Blood 1+ (NEGATIVE) H Urine Nitrite Negative (NEGATIVE) Urine Bilirubin 1+ (NEGATIVE) H Urine Ictotest Negative Urine Urobilinogen 4 MG/DL (0.0-1.0) H Urine Leukocyte Esterase 2+ (NEGATIVE) H Urine RBC 2-4 /HPF (0 - 0) H Urine WBC 5-10 /HPF (0 - 0) H Urine Squamous Epithelial Cells Occasional /LPF Urine Bacteria Few /HPF (NONE) Urine Opiates Screen Positive (NEGATIVE) H Urine Barbiturates Screen Negative (NEGATIVE) Phencyclidine (PCP) Screen Negative (NEGATIVE) Urine Amphetamines Screen Negative (NEGATIVE) Urine Benzodiazepines Screen Negative (NEGATIVE) Urine Cocaine Screen Negative (NEGATIVE) Urine Marijuana (THC) Screen Positive (NEGATIVE) H Uric Acid 11.4 mg/dL (3.0-7.5) H Urine Eosinophils None seen Urine Random Sodium < 10 mmol/L Urine Potassium Timed 89 mmol/L Stool Occult Blood Positive (NEGATIVE) Test 12/11/16 04:30 White Blood Count 10.0 K/UL (4.8-10.8) Red Blood Count 3.19 M/UL (4.70-6.10) L Hemoglobin 8.4 G/DL (14.2-18.0) L Hematocrit 26.9 % (42.0-52.0) L Mean Corpuscular Volume 84 FL (80-99) Mean Corpuscular Hemoglobin 26.4 PG (27.0-31.0) L Mean Corpuscular Hemoglobin Concent 31.4 G/DL (32.0-36.0) L Red Cell Distribution Width 18.6 % (11.6-14.8) H Platelet Count 597 K/UL (150-450) H Mean Platelet Volume 7.0 FL (6.5-10.1) Neutrophils (%) (Auto) 71.5 % (45.0-75.0) Lymphocytes (%) (Auto) 19.3 % (20.0-45.0) L Monocytes (%) (Auto) 8.2 % (1.0-10.0) Eosinophils (%) (Auto) 0.4 % (0.0-3.0) Basophils (%) (Auto) 0.6 % (0.0-2.0) Differential Total Cells Counted 100 Neutrophils % (Manual) 71 % (45-75) Lymphocytes % (Manual) 16 % (20-45) L Monocytes % (Manual) 13 % (1-10) H Eosinophils % (Manual) 0 % (0-3) Basophils % (Manual) 0 % (0-2) Band Neutrophils 0 % (0-8) Nucleated Red Blood Cells 4 /100 WBC Platelet Estimate Increased H Platelet Morphology Normal Hypochromasia 2+ Anisocytosis 2+ Erythrocyte Sedimentation Rate 87 MM/HR (0-20) H Reticulocyte Count 2.3 % (0.0-2.0) H Prothrombin Time 13.7 SEC (9.30-11.50) H Prothromb Time International Ratio 1.3 (0.9-1.1) H Activated Partial Thromboplast Time 27 SEC (23-33) Iron Level 20 ug/dL (59-158) L Total Iron Binding Capacity 437 ug/dL (250-400) H Percent Iron Saturation 5 % (15-50) L Unsaturated Iron Binding 417 ug/dL (112-346) H Lactate Dehydrogenase 413 U/L (135-230) H Troponin I < 0.30 ng/mL (<=0.30) C-Reactive Protein, Quantitative 4.1 mg/dL (< 0.5) H Triglycerides Level 61 mg/dL (< 150) Cholesterol Level 79 mg/dL (< 200) LDL Cholesterol 53 mg/dL (60-99) L HDL Cholesterol 14 mg/dL (> 60) Cholesterol/HDL Ratio 5.6 (3.3-4.4) H Carcinoembryonic Antigen 3.4 ng/mL H Vitamin B12 Level 849 pg/mL (211-946) Folate Pending Thyroid Stimulating Hormone (TSH) 2.450 uIU/mL (0.300-4.500) NIURKA WASHBURN Dec 11, 2016 19:27
[2016-12-12] VITALS: BP 95/72
--- NOTE | 2016-12-12 01:46 | Consultation ---
DATE OF CONSULTATION: 12/11/2016 CARDIOLOGY CONSULTATION CONSULTING PHYSICIAN: Ronni Swift M.D. REFERRING PHYSICIAN: Gabriel Pickens M.D. REASON FOR REFERRAL: Shortness of breath. HISTORY OF PRESENT ILLNESS: This is a middle-aged gentleman apparently who had an ST-segment elevation myocardial infarction, he had cardiac catheterization and intervention and subsequently had adequate muscle damage to cause him to have an ejection fraction of 22% with significant ischemic cardiomyopathy and heart failure subsequent to that. He has a history of basal cell carcinoma of the orbit, he had enucleation of the eye. When he had myocardial infarction apparently 11/27/2016 through 12/04/2016, he was discharged on dual antiplatelet therapy. He did have a venous duplex study of the lower extremity which apparently showed deep venous thrombosis although below the knee, but potential for increased risk of bleeding resulted and I am not sure to anticoagulate rightfully, so the patient was subsequently admitted because of bleeding from his eye and was taken off antiplatelet agents and was placed only on aspirin and was discharged subsequently home a few days ago. He was transfused for hemoglobin of 7.1 with of blood. He had venous duplex apparently showed no change in the venous thrombosis size. He now presents to the hospital because of shortness of breath with minimal activity. He says when he had hospitalization at [facility] he was the same and he really is not feeling better. He indicates he has been compliant with his medications. He indicates that when he has symptoms of shortness of breath, he drinks something and symptoms improve. He lives in his van at the present time. He sleeps flat position on the side in the hospital. He indicates he uses two pillows. He does have episodes of shortness breath waking him up at night. the patient is dizzy and lightheaded. The patient has palpitations. PAST MEDICAL HISTORY: Positive for history of acute ST elevation myocardial infarction again and the patient refused therapy. He has a history of bleeding from his eye. 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 FAMILY HISTORY: Positive for some kind of heart problems in mother, father, and siblings, but the patient is unaware of. SOCIAL HISTORY: He is homeless. He used to drink six beers a day. He denies any alcohol intake. He does occasionally take oxycodone for back pains and no drug use. He lives in his car. REVIEW OF SYSTEMS: Gastrointestinal: Negative. Genitourinary: Negative. Pulmonary: Negative. Constitutional: Negative. Neurologic: Negative. PHYSICAL EXAMINATION: GENERAL: Shows to be obese middle-aged gentleman, in no respiratory distress, eye patch on the right side. VITAL SIGNS: His blood pressure at the time of admission was between 99/66 to 126/73, his heart rates in the 70s to 90s, his temperature is 97 degrees, and saturation of 92% to 96% on room air. NECK: Supple. RESPIRATORY: There are basal crackles on the lung examination. CARDIAC: Regular rate and rhythm. No heaves or thrills noted. ABDOMEN: Abdomen is obese. Positive bowel sounds. Nontender. EXTREMITIES: There is edema of 1+ to 2+ of the lower extremities that is pitting. NEUROLOGICAL: He is awake, alert, responsive, and in no respiratory distress. LABORATORY AND DIAGNOSTIC DATA: White count of 10, hemoglobin 8.4, and platelet count of 497,000 with 16 lymphocytes and 13 monocytes. Sedimentation rate of 87, reticulocyte count of 2.3. His sodium 131, potassium 4.4, chloride 90, bicarbonate of 19, BUN 33, creatinine 1.8, and glucose of 116. Bilirubin of 1.4, alkaline phosphatase 218, AST and ALT 90 and 79 respectively. Troponin less than 0.03. His proBNP is 10,983. His coags, INR 1.3 and PTT of 27. His urinalysis shows 5 to 10 WBCs, 2+ leukocyte esterase, and 2+ protein, and his toxicology screen positive for opiates as well as marijuana, and stool occult blood is positive. His electrocardiogram shows right bundle-branch conduction defect, delay in R-wave progression suggestive of anterior myocardial infarction, low voltage QRS complexes in the mid leads, no real significant ST-T wave abnormalities being noted. In direct comparison to EKG performed at [facility] on 12/05/2016, his present EKG appears to be unchanged. ASSESSMENT: 1. Acute on chronic systolic heart failure. 2. Ischemic cardiomyopathy. 3. Coronary disease history, for which the patient refused PCI. 4. Basal cell carcinoma of the right eye, status post enucleation. 5. Renal insufficiency. 6. History of recent bleed from his eye post dual antiplatelet therapy. 7. Deep venous thrombosis of the left lower extremity, chronic, previously stable. 8. Ischemic cardiomyopathy with ejection fraction of 22% previously. Dr. Pickens, this patient was seen in cardiac consultation. The patient has had an echocardiogram here that has shown ejection fraction of approximately 30% with significant amount of left ventricle being akinetic, which I personally reviewed. He does have some mild aortic regurgitation, moderate mitral regurgitation, and mitral inflow suggestive of increased left atrial pressure and diastolic dysfunction. His venous duplex study shows an acute thrombus of the left calf with calf pain and he was not felt to be a candidate for anticoagulation at [facility]. He is on intravenous fluids, which I will discontinue at the present time and place him on some low-dose diuretics in light of fact that he has symptoms of congestive heart failure. He recently was at [facility], he received blood transfusion and his medications including aspirin, Lipitor 80 mg daily, Lasix 40 mg as needed if short of breath or leg swelling lisinopril 2.5 mg daily, those will be restarted and the patient's blood pressure will be monitored, and further recommendations as necessary. Ronni Swift M.D. DR: APURVA JOB#: [id number] CC:
[2016-12-12 04:00] VITALS: BP 135/77
[2016-12-12 07:37] LABS: TROPONIN I < 0.30 ng/mL (<=0.30)
[2016-12-12 08:00] VITALS: BP 132/77
[2016-12-12 08:12] LABS: CALCIUM 9.3 mg/dL (8.6-10.2); CREATININE 1.3 mg/dL (0.7-1.2); GLOMERULAR FILTRATION RATE 56.5 mL/min (>60); POTASSIUM 4.1 mEQ/L (3.4-4.9)
[2016-12-12] MEDS: Aspirin Baby 81mg ORAL SCH (08:12)
--- NOTE | 2016-12-12 08:16 | Consultation ---
DATE OF CONSULTATION: 12/11/2016 HEMATOLOGY/ONCOLOGY CONSULTATION CONSULTING PHYSICIAN: Shane Metz M.D. REQUESTING PHYSICIAN: Gabriel Pickens M.D. REASON FOR CONSULTATION: Evaluation of anemia, thrombocytosis, and coagulopathy. IDENTIFICATION: Dear Dr. Pickens, The patient is a pleasant 61-year-old male. He has a past medical history significant for CHF, history of brain cancer, CAD, mild hypertension, diabetes mellitus, homeless, and history of alcohol abuse, at this time presents to [facility] with shortness of breath as well as chest pain, difficulty walking, very short of breath. Chest x-ray showed cardiomegaly, pleural effusion. Cardiology service as well as Neurology consulted for further evaluation and treatment. Status post enucleation, DVT, below the knee, however, is not acute as was noted. Hematology consulted for further evaluation. PAST MEDICAL HISTORY: Basal cell carcinoma affecting his left orbit, left eye, gradual progression, not treated, enucleation apparently, resection of the tumor, has an open wound on the left orbit, CHF, chronic alcohol abuse, CAD, previous GA, type 2 diabetes mellitus, transaminitis, and pulmonary edema. MEDICATIONS: Aspirin, diltiazem, , and Restoril. SOCIAL HISTORY: Lives in a van. No close family. He states his last drink was two months ago. Smokes marijuana. REVIEW OF SYSTEMS: Constitutional: No fever, chills, or night sweats. Skin: No rashes, lumps, or itching. HEENT: No headache or vision changes. Breasts: No lumps, pain, or discharge. Pulmonary: He does have some shortness of breath on exertion and chest pain. Cardiovascular: No chest pain, costochondritis. Gastrointestinal: No nausea, vomiting, or diarrhea. Genitourinary: No dysuria, frequency, or urgency. Musculoskeletal: No joint swelling, muscle pain, or trauma. PHYSICAL EXAMINATION: GENERAL: This gentleman is in distress. VITAL SIGNS: Blood pressure 138/80, respiratory rate 12, and temperature 98 degrees Fahrenheit. HEENT: Large gaping tissue deficit in the right orbital area, enucleated right eye. SKIN: Otherwise no rashes noted. PULMONARY: Clear to auscultation bilaterally. No crackles noted. CARDIOVASCULAR: Regular rate. No S3 or S4. ABDOMEN: Soft, nontender, and nondistended. EXTREMITIES: A 1+ edema. LABORATORY AND DIAGNOSTIC DATA: . Hemoglobin and hematocrit is pending. Alkaline phosphatase reviewed. INR is 1.3. BUN of 33, creatinine of 1.8. BNP of 11,000. ASSESSMENT: 1. Basal cell carcinoma, status post enucleation right eye, stable, unchanged, invasive. We would not recommend at the moment treatment especially given lack of social support and lack of followup . 2. Anemia, secondary to chronic disease. 3. Deep vein thrombosis noted. We would not recommend anticoagulation ____ the patient's carcinoma eye. 4. Anemia. 5. Coagulopathy potential involvement. 6. Anemia of kidney disease. 7. Hypertension. 8. Type 2 diabetes mellitus. 9. Substance abuse. 10. Homelessness. Social work consult. 11. Discussed with staff. Shane Metz M.D. DR: BENITA JOB#: [id number] CC:
[2016-12-12] MEDS: Morphine Sulfate 2mg/ml Inj IVP PRN ×2 (08:22→16:24)
[2016-12-12 12:00] VITALS: BP 105/79
--- NOTE | 2016-12-12 13:09 | Pulmonology Progress Note ---
Assessment/Plan Problems: (1) Pulmonary edema (2) Cardiomyopathy (3) EF 30% (4) CAD (coronary artery disease) (5) Lower GI bleed (6) Anemia (7) Renal failure (8) Diabetes mellitus Assessment/Plan continue diuretics pt/ot evalutatin pt is homeless, snif placement check cxr, BNP in am Subjective ROS Limited/Unobtainable: No Interval Events: improving Allergies: Coded Allergies: No Known Allergies (Unverified , 05/09/13) Objective Last 24 Hour Vital Signs Date Time Temp Pulse Resp B/P Pulse Ox O2 Delivery O2 Flow Rate FiO2 12/12/16 12:00 97.8 94 20 105/79 94 Nasal Cannula 12/12/16 08:52 97.0 12/12/16 08:00 93 12/12/16 08:00 93 12/12/16 08:00 95.9 98 20 132/77 Nasal Cannula 12/12/16 06:38 71 16 Room Air 12/12/16 04:00 97.0 91 20 135/77 100 Nasal Cannula 2.0 29 12/12/16 04:00 93 12/12/16 00:00 92 12/12/16 00:00 97.0 87 20 95/72 100 Nasal Cannula 2.0 29 12/11/16 20:00 96 12/11/16 20:00 97.0 94 20 98/66 97 Nasal Cannula 2.0 29 12/11/16 19:48 90 20 Nasal Cannula 2.0 12/11/16 16:00 97.0 97 18 126/73 Room Air 12/11/16 16:00 89 12/11/16 14:28 92 20 Nasal Cannula 2.0 29 Intake and Output 12/11/16 12/12/16 19:00 07:00 Intake Total 1100 ml Output Total 600 ml Balance 1100 ml -600 ml Intake Oral 1100 ml Output Urine Total 600 ml # Voids 8 # Bowel Movements 1 General Appearance: WD/WN HEENT: normocephalic, atraumatic Respiratory/Chest: chest wall non-tender, lungs clear Cardiovascular: normal peripheral pulses, normal rate Abdomen: normal bowel sounds, soft, non tender Genitourinary: normal external genitalia Extremities: no cyanosis Skin: no rash 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 Lymphatic: no neck adenopathy Laboratory Tests 12/12/16 07:00: Sodium Level 133L, Potassium Level 4.1, Chloride Level 94L, Carbon Dioxide Level 21, Anion Gap 18H, Blood Urea Nitrogen 31H, Creatinine 1.3H, Estimat Glomerular Filtration Rate 56.5, Glucose Level 111H, Calcium Level 9.3, Troponin I < 0.30 Current Medications Medications (Trade) Dose Ordered Sig/Clayton Route PRN Reason Start Time Stop Time Status Last Admin Dose Admin Acetaminophen (Tylenol) 650 mg Q4H PRN ORAL FEVER 12/10/16 22:15 01/09/17 22:14 Acetaminophen/ Hydrocodone Bitart ([place] 5/325) 1 tab Q6H PRN ORAL For Pain 12/10/16 22:15 12/17/16 22:14 12/12/16 12:46 Albuterol/ Ipratropium (DuoNeb 0.5-3(2.5)mg/3ml) 3 ml EVERY 4 HOURS PRN HHN Shortness of Breath 12/10/16 22:15 12/15/16 22:14 Aspirin (ASA) 81 mg DAILY ORAL 12/12/16 09:00 01/11/17 08:59 12/12/16 08:12 Diltiazem HCl (Cardizem) 10 mg EVERY HOUR PRN IV heart rate more than 120, 12/10/16 22:15 01/09/17 22:14 Enalaprilat (Vasotec) 2.5 mg EVERY 6 HOURS PRN IV sbp more than 160 12/10/16 22:15 01/09/17 22:14 Furosemide (Lasix) 40 mg DAILY IV 12/11/16 20:00 01/10/17 19:59 12/12/16 08:12 Heparin Sodium (Porcine) (Heparin 5000 units/ml) 5,000 units EVERY 12 HOURS SUBQ 12/11/16 09:00 01/10/17 08:59 Morphine Sulfate (Morphine Sulfate) 2 mg EVERY 4 HOURS PRN IVP severe Pain (Pain Scale 7-10) 12/10/16 22:15 12/17/16 22:14 12/12/16 08:22 Nitroglycerin (Ntg) 0.4 mg Every 5 Minutes PRN SL Prn Chest Pain 12/10/16 22:15 01/09/17 22:14 Ondansetron HCl (Zofran) 4 mg Q6H PRN IVP Nausea & Vomiting 12/10/16 22:15 01/09/17 22:14 Pantoprazole (Protonix) 40 mg DAILY ORAL 12/11/16 09:00 01/10/17 08:59 12/12/16 08:12 Polyethylene Glycol (Miralax) 17 gm DAILYPRN PRN ORAL Constipation 12/10/16 22:15 01/09/17 22:14 Temazepam (Restoril) 15 mg HSPRN PRN ORAL Insomnia 12/10/16 22:15 12/17/16 22:14 12/11/16 21:59 RICARDO SHIPLEY Dec 12, 2016 13:09
--- NOTE | 2016-12-12 13:40 | General Progress Note ---
Assessment/Plan Assessment/Plan 1. Basal cell carcinoma, status post enucleation right eye, stable, unchanged, invasive. We would not recommend treatment at the moment especially given lack of social support and lack of followup. 2. Anemia, secondary to chronic disease. --> monitor counts --> hgb goal is above 7 3. Deep vein thrombosis noted in the L calf vein. We would not recommend anticoagulation at the moment due to the patient's carcinoma of the eye. 4. Anemia. 5. Coagulopathy. 6. Anemia of kidney disease. 7. Hypertension. 8. Type 2 diabetes mellitus. 9. Substance abuse. 10. Homelessness. Social work consult. 11. Discussed with staff. Subjective Constitutional: Reports: no symptoms HEENT: Reports: no symptoms Cardiovascular: Reports: no symptoms Respiratory: Reports: no symptoms Gastrointestinal/Abdominal: Reports: no symptoms Genitourinary: Reports: no symptoms Neurologic/Psychiatric: Reports: no symptoms Endocrine: Reports: no symptoms Hematologic/Lymphatic: Reports: anemia Allergies: Coded Allergies: No Known Allergies (Unverified , 05/09/13) Subjective nad , no events overnight, appears comfortable Objective Last 24 Hour Vital Signs Date Time Temp Pulse Resp B/P Pulse Ox O2 Delivery O2 Flow Rate FiO2 12/12/16 12:00 97.8 94 20 105/79 94 Nasal Cannula 12/12/16 08:52 97.0 12/12/16 08:00 93 12/12/16 08:00 93 12/12/16 08:00 95.9 98 20 132/77 Nasal Cannula 12/12/16 06:38 71 16 Room Air 12/12/16 04:00 97.0 91 20 135/77 100 Nasal Cannula 2.0 29 12/12/16 04:00 93 12/12/16 00:00 92 12/12/16 00:00 97.0 87 20 95/72 100 Nasal Cannula 2.0 29 12/11/16 20:00 96 12/11/16 20:00 97.0 94 20 98/66 97 Nasal Cannula 2.0 29 12/11/16 19:48 90 20 Nasal Cannula 2.0 12/11/16 16:00 97.0 97 18 126/73 Room Air 12/11/16 16:00 89 12/11/16 14:28 92 20 Nasal Cannula 2.0 29 Intake and Output 12/11/16 12/12/16 19:00 07:00 Intake Total 1100 ml Output Total 600 ml Balance 1100 ml -600 ml Intake Oral 1100 ml Output Urine Total 600 ml # Voids 8 # Bowel Movements 1 Laboratory Tests 12/12/16 07:00: Sodium Level 133L, Potassium Level 4.1, Chloride Level 94L, Carbon Dioxide Level 21, Anion Gap 18H, Blood Urea Nitrogen 31H, Creatinine 1.3H, Estimat Glomerular Filtration Rate 56.5, Glucose Level 111H, Calcium Level 9.3, Troponin I < 0.30 Height (Feet): 5 Height (Inches): 10.00 Weight (Pounds): 232 General Appearance: no apparent distress EENT: PERRL/EOMI Neck: non-tender Cardiovascular: normal peripheral pulses Respiratory/Chest: chest wall non-tender Edema: no edema noted Pedal (L), no edema noted Pedal (R) Edema: trace edema 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
--- NOTE | 2016-12-12 15:57 | GI Initial Consult Note ---
History of Present Illness General Date patient seen: Dec 12, 2016 Time patient seen: 15:48 Reason for Hospitalization: Chest Pain Referring physician: RICADRO GONZALEZ Reason for Consultation: OB STOOL POSITIVE Present Illness HPI This patient lives in his van. Patient has a history of coronary artery disease and myocardial infarction. He also has a history of congestive heart failure. He states that he has brain cancer. He states he has been treated at [facility]. He has refused surgical resection of his brain tumor. He states that he was recently diagnosed with a DVT. He cannot be on any anticoagulation because when he went on Coumadin his eye started bleeding. He was recently placed on Lasix. He states he has been taking the Lasix as prescribed. He states he had a history of alcohol abuse but has not had a drink in 2 months. He complains of chest pain and shortness of breath. He states he can't even walk because he becomes very short of breath. He states he is also very weak. He has no other complaints. GI Consult. HPI as noted above. GI consulted for positive occult blood stool. Pt seen on floor, awake A&OxNAD with no active s/sx of N/V/D. C/o of constipation. Presents today with positive occult blood stool, anemi and iron deficiency. The past has no history of any endoscopic procedures performed. Home Meds Active Scripts Hydrocodone Bit/Acetaminophen 5-325* (NORCO 5-325*) 1 Each Tablet, 1 TAB ORAL Q6H Y for For Pain, #10 TAB 0 Refills Prov:BRINA VELAZQUEZ.AJennifer 05/09/13 Reported Medications Chlordiazepoxide (Chlordiazepoxide HCl) 25 Mg Capsule, 25 MG ORAL BID, #15 CAP 0 Refills 12/11/16 Furosemide* (LASIX*) 40 Mg Tablet, 40 MG ORAL DAILY, TAB 12/11/16 Discontinued Reported Medications Atenolol (Tenormin) 25 Mg Tab, 25 MG ORAL DAILY, TAB 05/09/13 Discontinued Scripts Gentamicin Sulfate* (GENTAMICIN SULFATE*) 3.5 Gm Oint...g., 3.5 GM OP TID for 7 Days, GM Prov:LAURA CRONIN D.O. 06/01/16 Ibuprofen* (MOTRIN*) 600 Mg Tablet, 600 MG PO TID, #30 TAB 0 Refills Take 1 tablet by mouth three times a day as needed for pain. Prov:BRINA VELAZQUEZ 05/09/13 Med list reviewed/reconciled: Yes Allergies: Coded Allergies: No Known Allergies (Unverified , 05/09/13) Patient History History Provided By: Patient, Medical Record PMH Narrative Past Medical History: see triage record, DM, HTN, VA, CAD, CHF, other - Brain ca Social History: Denies: alcohol use, drug use, smoking Reviewed Nursing Documentation: PMH: Agreed, PSxH: Agreed Nursing Documentation-PMH Hx Hypertension: Yes Hx Diabetes: Yes Hx Cancer: Yes - Brain CA Review of Systems All Other Systems: limited Physical Exam Vital Signs Date Time Temp Pulse Resp B/P Pulse Ox O2 Delivery O2 Flow Rate FiO2 12/10/16 19:31 98.4 99 16 106/79 100 Room Air 12/11/16 02:15 2.0 12/11/16 14:28 29 Sp02 EP Interpretation: reviewed Labs Laboratory Tests Test 12/12/16 07:00 Sodium Level 133 mEQ/L (135-145) L Potassium Level 4.1 mEQ/L (3.4-4.9) Chloride Level 94 mEQ/L (98-107) L Carbon Dioxide Level 21 mEQ/L (20-30) Anion Gap 18 (5-15) H Blood Urea Nitrogen 31 mg/dL (7-23) H Creatinine 1.3 mg/dL (0.7-1.2) H Estimat Glomerular Filtration Rate 56.5 mL/min (>60) Glucose Level 111 mg/dL (74-106) H Calcium Level 9.3 mg/dL (8.6-10.2) Troponin I < 0.30 ng/mL (<=0.30) General Appearance: well appearing, no apparent distress, alert Head: normocephalic EENT: normal ENT inspection Neck: supple Respiratory: no respiratory distress Cardiovascular: normal rate Gastrointestinal: soft Rectal: deferred Neurologic: normal inspection, alert, oriented x3, responsive Psychiatric: normal inspection, judgement/insight normal, memory normal Skin: normal inspection, normal color, no rash, warm/dry, palpation normal Lymphatic: normal inspection, no adenopathy Current Medications Current Medications Medications (Trade) Dose Ordered Sig/Clayton Route PRN Reason Start Time Stop Time Status Last Admin Dose Admin Acetaminophen (Tylenol) 650 mg Q4H PRN ORAL FEVER 12/10/16 22:15 01/09/17 22:14 Acetaminophen/ Hydrocodone Bitart ([place] 5/325) 1 tab Q6H PRN ORAL For Pain 12/10/16 22:15 12/17/16 22:14 12/12/16 12:46 Albuterol/ Ipratropium (DuoNeb 0.5-3(2.5)mg/3ml) 3 ml EVERY 4 HOURS PRN HHN Shortness of Breath 12/10/16 22:15 12/15/16 22:14 Aspirin (ASA) 81 mg DAILY ORAL 12/12/16 09:00 01/11/17 08:59 12/12/16 08:12 Diltiazem HCl (Cardizem) 10 mg EVERY HOUR PRN IV heart rate more than 120, 12/10/16 22:15 01/09/17 22:14 Enalaprilat (Vasotec) 2.5 mg EVERY 6 HOURS PRN IV sbp more than 160 12/10/16 22:15 01/09/17 22:14 Furosemide (Lasix) 40 mg DAILY IV 12/11/16 20:00 01/10/17 19:59 12/12/16 08:12 Heparin Sodium (Porcine) (Heparin 5000 units/ml) 5,000 units EVERY 12 HOURS SUBQ 12/11/16 09:00 01/10/17 08:59 Morphine Sulfate (Morphine Sulfate) 2 mg EVERY 4 HOURS PRN IVP severe Pain (Pain Scale 7-10) 12/10/16 22:15 12/17/16 22:14 12/12/16 08:22 Nitroglycerin (Ntg) 0.4 mg Every 5 Minutes PRN SL Prn Chest Pain 12/10/16 22:15 01/09/17 22:14 Ondansetron HCl (Zofran) 4 mg Q6H PRN IVP Nausea & Vomiting 12/10/16 22:15 01/09/17 22:14 Pantoprazole (Protonix) 40 mg DAILY ORAL 12/11/16 09:00 01/10/17 08:59 12/12/16 08:12 Polyethylene Glycol (Miralax) 17 gm DAILYPRN PRN ORAL Constipation 12/10/16 22:15 01/09/17 22:14 Temazepam (Restoril) 15 mg HSPRN PRN ORAL Insomnia 12/10/16 22:15 12/17/16 22:14 12/11/16 21:59 GI: Plan Problems: (1) Occult blood in stools (2) Iron deficiency (3) Anemia (4) EF 30% Plan patient will require cardiac clearance for EGD/colonoscopy given EF of 30% monitor H&H, transfuse prn ppi iron deficiency >> venofer x 3 cardiac diet fu labs Discussed with Dr. Rehman. Thank you for referring this patient, we will follow. Zainab Curry N.P. Dec 12, 2016 15:57
[2016-12-12 16:00] VITALS: BP 100/68
--- NOTE | 2016-12-12 17:32 | Cardiology Progress Note ---
Assessment/Plan Assessment/Plan 1. Acute on chronic systolic heart failure. 2. Ischemic cardiomyopathy. 3. Coronary disease history, for which the patient refused PCI. 4. Basal cell carcinoma of the right eye, status post enucleation. 5. Renal insufficiency. 6. History of recent bleed from his eye post dual antiplatelet therapy. 7. Deep venous thrombosis of the left lower extremity, chronic,previously stable. 8. Ischemic cardiomyopathy with ejection fraction of 22% previously. 9. NSVT diuretics to be continued watch bp adn cr nto a candidate co chronic anticoagualtion due to bleeding form right eye cr is better bp seem ok for his degree of cm low dose acei if bp allow orthostatic vital tele reviewed no myonecrosis Subjective Cardiovascular: Reports: lightheadedness, Denies: chest pain, palpitations Respiratory: Reports: orthopnea, shortness of breath Gastrointestinal/Abdominal: Denies: abdomen distended Genitourinary: Denies: burning Objective Last 24 Hour Vital Signs Date Time Temp Pulse Resp B/P Pulse Ox O2 Delivery O2 Flow Rate FiO2 12/12/16 16:54 95.7 12/12/16 16:00 95.7 93 20 100/68 97 Nasal Cannula 12/12/16 13:45 97.8 12/12/16 12:00 97.8 94 20 105/79 94 Nasal Cannula 12/12/16 12:00 97 12/12/16 08:00 93 12/12/16 08:00 93 12/12/16 08:00 95.9 98 20 132/77 Nasal Cannula 12/12/16 06:38 71 16 Room Air 12/12/16 04:00 97.0 91 20 135/77 100 Nasal Cannula 2.0 29 12/12/16 04:00 93 12/12/16 00:00 92 12/12/16 00:00 97.0 87 20 95/72 100 Nasal Cannula 2.0 29 12/11/16 20:00 96 12/11/16 20:00 97.0 94 20 98/66 97 Nasal Cannula 2.0 29 12/11/16 19:48 90 20 Nasal Cannula 2.0 General Appearance: alert Neck: supple Cardiovascular: normal rate, regular rhythm Respiratory/Chest: lungs clear Abdomen: normal bowel sounds, non tender, soft Extremities: moderate edema Intake and Output 12/11/16 12/12/16 19:00 07:00 Intake Total 1100 ml Output Total 600 ml Balance 1100 ml -600 ml Intake Oral 1100 ml Output Urine Total 600 ml # Voids 8 # Bowel Movements 1 Laboratory Tests Test 12/12/16 07:00 Sodium Level 133 mEQ/L (135-145) L Potassium Level 4.1 mEQ/L (3.4-4.9) Chloride Level 94 mEQ/L (98-107) L Carbon Dioxide Level 21 mEQ/L (20-30) Anion Gap 18 (5-15) H Blood Urea Nitrogen 31 mg/dL (7-23) H Creatinine 1.3 mg/dL (0.7-1.2) H Estimat Glomerular Filtration Rate 56.5 mL/min (>60) Glucose Level 111 mg/dL (74-106) H Calcium Level 9.3 mg/dL (8.6-10.2) Troponin I < 0.30 ng/mL (<=0.30) NIURKA WASHBURN Dec 12, 2016 17:32
[2016-12-12 20:12] VITALS: BP 106/50
[2016-12-12] MEDS: Heparin 5000 units/ml inj SUBQ SCH (21:00)
[2016-12-13 00:02] VITALS: BP 100/64
[2016-12-13 04:00] VITALS: BP 102/62
[2016-12-13 07:45] VITALS: BP 117/72
[2016-12-13 08:15] LABS: BASOPHILS % (AUTO) 1.4 % (0.0-2.0); EOSINOPHILS % (AUTO) 1.5 % (0.0-3.0); LYMPHOCYTES % (AUTO) 23.4 % (20.0-45.0); MEAN CORPUSCULAR HEMOGLOBIN 25.5 PG (27.0-31.0); MEAN CORPUSCULAR VOLUME 85 FL (80-99); MONOCYTES % (AUTO) 7.6 % (1.0-10.0); NEUTROPHILS % (AUTO) 66.1 % (45.0-75.0); PLATELET COUNT 594 K/UL (150-450); RED BLOOD COUNT 3.74 M/UL (4.70-6.10); RED CELL DISTRIBUTION WIDTH 18.8 % (11.6-14.8); WHITE BLOOD COUNT 8.8 K/UL (4.8-10.8)
[2016-12-13] MEDS: Aspirin Baby 81mg ORAL SCH (08:32)
[2016-12-13] MEDS: Morphine Sulfate 2mg/ml Inj IVP PRN (08:40)
[2016-12-13] MEDS: Heparin 5000 units/ml inj SUBQ SCH (09:00)
[2016-12-13 09:13] LABS: ALBUMIN/GLOBULIN RATIO 0.7 (1.0-2.7); CALCIUM 9.3 mg/dL (8.6-10.2); CREATININE 1.5 mg/dL (0.7-1.2); GLOMERULAR FILTRATION RATE 47.9 mL/min (>60); POTASSIUM 4.4 mEQ/L (3.4-4.9); TOTAL PROTEIN 8.1 g/dL (6.6-8.7)
--- NOTE | 2016-12-13 09:17 | Diagnostic Imaging Report ---
Indications: DYSPNEA Technique: Portable AP chest Findings: Comparison: 12/10/16 Inspiratory effort has decreased. Image substantially degraded by motion. These factors limit evaluation. Linear density persists in right lung base. Underlying consolidative opacity not excludable. Right costophrenic angle remains indistinct. Visualized portions of left lung and pleura remain clear. Cardiac silhouette remains enlarged. Bony vasculature remains within normal limits. IMPRESSION: Limited exam due to technical factors described Persistent subsegmental atelectasis right lung base. Underlying pneumonia not excludable. Right pleural effusion again suggested Upright PA and lateral chest radiographs with better inspiratory effort and optimal technique recommended for more complete evaluation.
--- NOTE | 2016-12-13 11:00 | GI Progress Note ---
Assessment/Plan Problems: (1) Iron deficiency ICD Codes: E61.1 - Iron deficiency SNOMED: 34839030 (2) Occult blood in stools ICD Codes: R19.5 - Other fecal abnormalities SNOMED: 24952134, 012192158 (3) EF 30% (4) Diabetes mellitus ICD Codes: E11.9 - Type 2 diabetes mellitus without complications SNOMED: 95394605 (5) Transaminitis ICD Codes: R74.0 - Nonspecific elevation of levels of transaminase and lactic acid dehydrogenase [LDH] SNOMED: 601242995 (6) Anemia ICD Codes: D64.9 - Anemia, unspecified SNOMED: 049035874 Status: unchanged Status Narrative Discussed with Dr. Rehman. Assessment/Plan patient will require cardiac clearance for EGD/colonoscopy given EF of 30% monitor H&H, transfuse prn ppi iron deficiency >> venofer x 3 cardiac diet fu abdominal U/S fu hep panel fu labs Subjective Subjective general weakness Objective Last 24 Hour Vital Signs Date Time Temp Pulse Resp B/P Pulse Ox O2 Delivery O2 Flow Rate FiO2 12/13/16 08:00 98 12/13/16 07:45 97.2 97 18 117/72 95 Room Air 12/13/16 04:00 93 12/13/16 04:00 98.0 94 20 102/62 98 Room Air 12/13/16 00:02 97.6 88 19 100/64 95 Room Air 12/13/16 00:00 96 12/12/16 20:12 97.7 96 20 106/50 100 Room Air 12/12/16 20:00 98 12/12/16 19:25 95 18 Room Air 12/12/16 16:54 95.7 12/12/16 16:00 95.7 93 20 100/68 97 Nasal Cannula 12/12/16 16:00 93 12/12/16 13:45 97.8 12/12/16 12:00 97.8 94 20 105/79 94 Nasal Cannula 12/12/16 12:00 97 Intake and Output 12/12/16 12/13/16 19:00 07:00 Output Total 250 ml Balance -250 ml Output Urine Total 250 ml # Voids 3 1 Laboratory Tests Test 12/13/16 07:35 White Blood Count 8.8 K/UL (4.8-10.8) Red Blood Count 3.74 M/UL (4.70-6.10) L Hemoglobin 9.5 G/DL (14.2-18.0) L Hematocrit 31.9 % (42.0-52.0) L Mean Corpuscular Volume 85 FL (80-99) Mean Corpuscular Hemoglobin 25.5 PG (27.0-31.0) L Mean Corpuscular Hemoglobin Concent 30.0 G/DL (32.0-36.0) L Red Cell Distribution Width 18.8 % (11.6-14.8) H Platelet Count 594 K/UL (150-450) H Mean Platelet Volume 7.0 FL (6.5-10.1) Neutrophils (%) (Auto) 66.1 % (45.0-75.0) Lymphocytes (%) (Auto) 23.4 % (20.0-45.0) Monocytes (%) (Auto) 7.6 % (1.0-10.0) Eosinophils (%) (Auto) 1.5 % (0.0-3.0) Basophils (%) (Auto) 1.4 % (0.0-2.0) Sodium Level 132 mEQ/L (135-145) L Potassium Level 4.4 mEQ/L (3.4-4.9) Chloride Level 93 mEQ/L (98-107) L Carbon Dioxide Level 20 mEQ/L (20-30) Anion Gap 19 (5-15) H Blood Urea Nitrogen 33 mg/dL (7-23) H Creatinine 1.5 mg/dL (0.7-1.2) H Estimat Glomerular Filtration Rate 47.9 mL/min (>60) Glucose Level 101 mg/dL (74-106) Calcium Level 9.3 mg/dL (8.6-10.2) Magnesium Level 2.4 mg/dL (1.7-2.5) Total Bilirubin 0.9 mg/dL (0.0-1.2) Aspartate Amino Transf (AST/SGOT) 160 U/L (5-40) H Alanine Aminotransferase (ALT/SGPT) 167 U/L (3-41) H Alkaline Phosphatase 253 U/L (40-129) H Pro-B-Type Natriuretic Peptide 6141 pg/mL (0-125) H Total Protein 8.1 g/dL (6.6-8.7) Albumin 3.5 g/dL (3.5-5.2) Globulin 4.6 g/dL Albumin/Globulin Ratio 0.7 (1.0-2.7) L Height (Feet): 5 Height (Inches): 10.00 Weight (Pounds): 232 General Appearance: no apparent distress, alert Cardiovascular: normal rate Respiratory/Chest: normal breath sounds, no respiratory distress Abdominal Exam: soft Zainab Curry NBrown Dec 13, 2016 11:00
[2016-12-13 11:52] VITALS: BP 105/45
--- NOTE | 2016-12-13 14:44 | Pulmonology Progress Note ---
Assessment/Plan Problems: (1) Pulmonary edema (2) Cardiomyopathy (3) EF 30% (4) CAD (coronary artery disease) (5) Lower GI bleed (6) Anemia (7) Renal failure (8) Diabetes mellitus Assessment/Plan continue diuretics pt/ot evalutatin pt is homeless, snif placement imrpivng dc planning in progress Subjective ROS Limited/Unobtainable: No Constitutional: Reports: no symptoms HEENT: Repors: no symptoms Respiratory: Reports: no symptoms Allergies: Coded Allergies: No Known Allergies (Unverified , 05/09/13) Objective Last 24 Hour Vital Signs Date Time Temp Pulse Resp B/P Pulse Ox O2 Delivery O2 Flow Rate FiO2 12/13/16 11:52 97.0 93 18 105/45 95 Room Air 12/13/16 08:00 98 12/13/16 07:45 97.2 97 18 117/72 95 Room Air 12/13/16 06:47 94 18 Room Air 12/13/16 04:00 93 12/13/16 04:00 98.0 94 20 102/62 98 Room Air 12/13/16 00:02 97.6 88 19 100/64 95 Room Air 12/13/16 00:00 96 12/12/16 20:12 97.7 96 20 106/50 100 Room Air 12/12/16 20:00 98 12/12/16 19:25 95 18 Room Air 12/12/16 16:54 95.7 12/12/16 16:00 95.7 93 20 100/68 97 Nasal Cannula 12/12/16 16:00 93 Intake and Output 12/12/16 12/13/16 19:00 07:00 Output Total 250 ml Balance -250 ml Output Urine Total 250 ml # Voids 3 1 General Appearance: WD/WN HEENT: normocephalic, atraumatic Respiratory/Chest: chest wall non-tender, lungs clear Cardiovascular: normal peripheral pulses, normal rate Abdomen: normal bowel sounds, soft, non tender Genitourinary: normal external genitalia Extremities: no cyanosis Skin: no lesions Neurologic/Psychiatric: 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 Complete 12/11/16 02:00 Rectum VRE Culture - Final NO VANCOMYCIN RESISTANT ENTEROCOCCUS ... Complete Laboratory Tests 12/13/16 07:35: White Blood Count 8.8, Red Blood Count 3.74L, Hemoglobin 9.5L, Hematocrit 31.9L , Mean Corpuscular Volume 85, Mean Corpuscular Hemoglobin 25.5L, Mean Corpuscular Hemoglobin Concent 30.0L, Red Cell Distribution Width 18.8H, Platelet Count 594H, Mean Platelet Volume 7.0, Neutrophils (%) (Auto) 66.1, Lymphocytes (%) (Auto) 23.4, Monocytes (%) (Auto) 7.6, Eosinophils (%) (Auto) 1.5, Basophils (%) (Auto) 1.4, Sodium Level 132L, Potassium Level 4.4, Chloride Level 93L, Carbon Dioxide Level 20, Anion Gap 19H, Blood Urea Nitrogen 33H, Creatinine 1.5H, Estimat Glomerular Filtration Rate 47.9, Glucose Level 101, Calcium Level 9.3, Magnesium Level 2.4, Total Bilirubin 0.9, Aspartate Amino Transf (AST/SGOT) 160H, Alanine Aminotransferase (ALT/SGPT) 167H, Alkaline Phosphatase 253H, Pro-B-Type Natriuretic Peptide 6141H, Total Protein 8.1, Albumin 3.5, Globulin 4.6, Albumin/Globulin Ratio 0.7L Current Medications Medications (Trade) Dose Ordered Sig/[place] Route PRN Reason Start Time Stop Time Status Last Admin Dose Admin Acetaminophen (Tylenol) 650 mg Q4H PRN ORAL FEVER 12/10/16 22:15 01/09/17 22:14 Acetaminophen/ Hydrocodone Bitart ([place] 5/325) 1 tab Q6H PRN ORAL For Pain 12/10/16 22:15 12/17/16 22:14 12/12/16 12:46 Albuterol/ Ipratropium (DuoNeb 0.5-3(2.5)mg/3ml) 3 ml EVERY 4 HOURS PRN HHN Shortness of Breath 12/10/16 22:15 12/15/16 22:14 Aspirin (ASA) 81 mg DAILY ORAL 12/12/16 09:00 01/11/17 08:59 12/13/16 08:32 Diltiazem HCl (Cardizem) 10 mg EVERY HOUR PRN IV heart rate more than 120, 12/10/16 22:15 01/09/17 22:14 Enalaprilat (Vasotec) 2.5 mg EVERY 6 HOURS PRN IV sbp more than 160 12/10/16 22:15 01/09/17 22:14 Furosemide (Lasix) 40 mg DAILY IV 12/11/16 20:00 01/10/17 19:59 12/13/16 08:33 Heparin Sodium (Porcine) (Heparin 5000 units/ml) 5,000 units EVERY 12 HOURS SUBQ 12/11/16 09:00 01/10/17 08:59 Morphine Sulfate (Morphine Sulfate) 2 mg EVERY 4 HOURS PRN IVP severe Pain (Pain Scale 7-10) 12/10/16 22:15 12/17/16 22:14 12/13/16 08:40 Nitroglycerin (Ntg) 0.4 mg Every 5 Minutes PRN SL Prn Chest Pain 12/10/16 22:15 01/09/17 22:14 Ondansetron HCl (Zofran) 4 mg Q6H PRN IVP Nausea & Vomiting 12/10/16 22:15 01/09/17 22:14 12/12/16 17:51 Pantoprazole (Protonix) 40 mg DAILY ORAL 12/11/16 09:00 01/10/17 08:59 12/13/16 08:32 Polyethylene Glycol (Miralax) 17 gm DAILYPRN PRN ORAL Constipation 12/10/16 22:15 01/09/17 22:14 Temazepam (Restoril) 15 mg HSPRN PRN ORAL Insomnia 12/10/16 22:15 12/17/16 22:14 12/11/16 21:59 RICARDO SHIPLEY Dec 13, 2016 14:44
--- NOTE | 2016-12-13 20:42 | General Progress Note ---
Assessment/Plan Assessment/Plan 1. Basal cell carcinoma, status post enucleation right eye, stable, unchanged, invasive. We would not recommend treatment at the moment especially given lack of social support and lack of followup. --> pt requested dnr status and snf placement 2. Anemia, secondary to chronic disease. --> monitor counts --> hgb goal is above 7 3. Deep vein thrombosis noted in the L calf vein. We would not recommend anticoagulation at the moment due to the patient's carcinoma of the eye. 4. Anemia. 5. Coagulopathy. 6. Anemia of kidney disease. 7. Hypertension. 8. Type 2 diabetes mellitus. 9. Substance abuse. 10. Homelessness. Social work consult. 11. Discussed with staff. Subjective Constitutional: Reports: no symptoms HEENT: Reports: no symptoms Cardiovascular: Reports: no symptoms Respiratory: Reports: no symptoms Gastrointestinal/Abdominal: Reports: no symptoms Genitourinary: Reports: no symptoms Neurologic/Psychiatric: Reports: no symptoms Endocrine: Reports: no symptoms Hematologic/Lymphatic: Reports: anemia Allergies: Coded Allergies: No Known Allergies (Unverified , 05/09/13) Subjective requested to be dnr/dni, discharged to snf Objective Last 24 Hour Vital Signs Date Time Temp Pulse Resp B/P Pulse Ox O2 Delivery O2 Flow Rate FiO2 12/13/16 11:52 97.0 93 18 105/45 95 Room Air 12/13/16 08:00 98 12/13/16 07:45 97.2 97 18 117/72 95 Room Air 12/13/16 06:47 94 18 Room Air 12/13/16 04:00 93 12/13/16 04:00 98.0 94 20 102/62 98 Room Air 12/13/16 00:02 97.6 88 19 100/64 95 Room Air 12/13/16 00:00 96 Intake and Output 12/12/16 12/13/16 19:00 07:00 Output Total 250 ml Balance -250 ml Output Urine Total 250 ml # Voids 3 1 Laboratory Tests 12/13/16 07:35: White Blood Count 8.8, Red Blood Count 3.74L, Hemoglobin 9.5L, Hematocrit 31.9L , Mean Corpuscular Volume 85, Mean Corpuscular Hemoglobin 25.5L, Mean Corpuscular Hemoglobin Concent 30.0L, Red Cell Distribution Width 18.8H, Platelet Count 594H, Mean Platelet Volume 7.0, Neutrophils (%) (Auto) 66.1, Lymphocytes (%) (Auto) 23.4, Monocytes (%) (Auto) 7.6, Eosinophils (%) (Auto) 1.5, Basophils (%) (Auto) 1.4, Sodium Level 132L, Potassium Level 4.4, Chloride Level 93L, Carbon Dioxide Level 20, Anion Gap 19H, Blood Urea Nitrogen 33H, Creatinine 1.5H, Estimat Glomerular Filtration Rate 47.9, Glucose Level 101, Calcium Level 9.3, Magnesium Level 2.4, Total Bilirubin 0.9, Aspartate Amino Transf (AST/SGOT) 160H, Alanine Aminotransferase (ALT/SGPT) 167H, Alkaline Phosphatase 253H, Pro-B-Type Natriuretic Peptide 6141H, Total Protein 8.1, Albumin 3.5, Globulin 4.6, Albumin/Globulin Ratio 0.7L Height (Feet): 5 Height (Inches): 10.00 Weight (Pounds): 232 General Appearance: no apparent distress EENT: normal ENT inspection Neck: non-tender Cardiovascular: normal peripheral pulses Respiratory/Chest: chest wall non-tender Abdomen: normal bowel sounds Edema: no edema noted Pedal (L), no edema noted Pedal (R) Skin: warm/dry Shane Metz Dec 13, 2016 20:42
[2016-12-14 14:09] LABS: OTHERS PATHOLOGIST COMMENT; PATH BLOOD SMEAR/OMC SENT TO PATHOLOGIST
--- NOTE | 2016-12-15 01:32 | Discharge Summary 2 SIG ---
DATE OF ADMISSION: 12/10/2016 DATE OF DISCHARGE: 12/13/2016 CONSULTANTS: 1. Shane Metz M.D. 2. Luis Miguel Rehman M.D. 3. Ronni Swift M.D. 4. Wilfredo Sweeney M.D. BRIEF HOSPITAL COURSE: The patient is a 61-year-old male with history of diabetes mellitus, hypertension, DE, coronary artery disease, CHF, brain CA, history of alcohol abuse and homeless presented to ED complaining of chest pain and shortness of breath and complained of inability to walk secondary to shortness of breath. On arrival to ED, chest x-ray showed right lower lobe opacity. Laboratories showed anemia and creatinine was elevated to 1.8. Liver function tests were elevated. Troponin was negative. EKG showed no acute changes with Q-waves in V1, V2 and V3. Chest x-ray showed questionable right lower lung opacity and pleural effusion. Due to the patient's complex medical history and claims to have recent diagnosis of DVT, but off of anticoagulation and a history of brain tumor, the patient was admitted to telemetry for pulmonary edema, cardiomyopathy, anemia, renal failure, diabetes mellitus, coronary artery disease and brain tumor. He was followed by Dr. Sweeney. The patient stated that he has had basal cell carcinoma affecting the left orbit and left-side of the skull, which seemed to be slowly progressing for over ten years. On neuro esam, there was no focal or lateralizing neurological deficit noted and denies any headache or dizziness. He had a venous duplex of the lower extremity that showed an acute DVT on the left leg. Anticoagulation was not recommended due to bleeding on the carcinoma on the eye. The patient has had basal cell carcinoma with status post enucleation of the right eye, had been stable and would not recommend treatment at the moment specially given the patient's lack of social support and lack of followup. Echocardiogram done showed ejection fraction of approximately 30% with significant amount of left ventricle being akinetic. The patient has mild aortic regurgitation, moderate mitral regurgitation and mitral inflow suggestive of increased left atrial pressure and diastolic dysfunction. The patient has acute on chronic systolic heart failure and was given Lasix, aspirin and atenolol. Anemia workup done showed iron deficiency. He was given Venofer IV and proton pump inhibitors. Urine toxicology was positive for THC. office services associate were called in to aid in placement and patient requested to be placed on Do Not Resuscitate/Do Not Intubate. He completed a POLST with Do Not Resuscitate and selective treatment with no artificial means of nutrition. He was referred to nursing facility and the patient was eventually accepted to [place] [facility]. DISPOSITION: The patient was discharged to a SNF. FINAL DIAGNOSES: 1. Acute deep vein thrombosis left leg, off anticoagulation. 2. Acute on chronic systolic heart failure. 3. Cardiomyopathy. 4. Acute on chronic renal failure. 5. Basal cell carcinoma status post enucleation of the right eye, stable, unchanged. 6. Coagulopathy. 7. Anemia of kidney disease. 8. Substance abuse. 9. Hypertension. 10. Homelessness. 11. Diabetes mellitus. 12. Elevated liver transaminases. 13. Dizziness. 14. Iron deficiency anemia. 15. Stool occult blood positive. 16. Ischemic cardiomyopathy. 17. Non-sustained ventricular tachycardia. Gabriel Pickens M.D. I have been assigned to dictate discharge summary on this account and I was not involved in the patient's management. Minda Buck N.P. DR: DANIELLE JOB#: [id number] CC: DANITA
== END 2016-12-13 15:26 | DRG 194 ==
LOC: EDBD 19:31 → EMR 20:26 → 2E 22:00 → EDBEDREQ 12-11 01:02
DX: I50.23 Acute on chronic systolic (congestive) heart failure (principal); I47.2 Ventricular tachycardia; D68.9 Coagulation defect, unspecified; N17.9 Acute kidney failure, unspecified; C79.31 Secondary malignant neoplasm of brain; I42.9 Cardiomyopathy, unspecified; D63.8 Anemia in other chronic diseases classified elsewhere; C69.61 Malignant neoplasm of right orbit; I82.402 Acute embolism and thrombosis of unspecified deep veins of left lower extremity; E11.9 Type 2 diabetes mellitus without complications; I25.2 Old myocardial infarction; Z59.0 Homelessness; I12.9 Hypertensive chronic kidney disease with stage 1 through stage 4 chronic kidney disease, or unspecified chronic kidney disease; N18.9 Chronic kidney disease, unspecified; R42 Dizziness and giddiness; D50.9 Iron deficiency anemia, unspecified; I25.5 Ischemic cardiomyopathy; R26.9 Unspecified abnormalities of gait and mobility; I25.10 Atherosclerotic heart disease of native coronary artery without angina pectoris; F10.21 Alcohol dependence, in remission; I45.10 Unspecified right bundle-branch block; I08.0 Rheumatic disorders of both mitral and aortic valves; R19.5 Other fecal abnormalities; E66.9 Obesity, unspecified; Z66 Do not resuscitate
CPT/HCPCS: 36415; 71010; 76775; 80048; 80053; 80061; 80300; 81003; 82248; 82270; 82378; 82550; 82553; 82607; 82728; 82746; 83540; 83550; 83615; 83735; 83880; 84133; 84300; 84443; 84484; 84550; 85007; 85025; 85044; 85060; 85610; 85651; 85730; 86140; 87081; 89050; 93005; 93306; 93970; 94664; J2405